=== PATIENT | male | born 1935 | race Caucasian/White ===

== ENCOUNTER → 2019-01-18 | Outpatient (CLI) | payer MEDICARE ==
[~2019-01-18] MED LIST: ALL10TAB28 PO; ASPI1TAB15 PO; CLOTR1CR TOP; CO Q PO; CO Q200C10 PO; CYAN100049 PO; DONE10TA90 PO; FLON1SPR NARES; MELA5CAP2 PO; MELO15TA28 PO; METO1TAB32 PO; METO1TAB87 PO; NAME28CA PO; OMEP40CA2 PO; PANT40TA3 PO; PLAV1TAB2 PO; QUET1TAB7 PO; SIMV20TA2 PO; TRIPOIN5 TOP; VITA500T88 PO; VITMTA PO; ZINC1TAB2 PO
--- NOTE | 2019-01-18 18:04 | REP ---
Chest x-ray: Two views. History: Upper respiratory symptoms. Comparison study: May 14, 2016. Findings: The patient is status post prior median sternotomy. Right hemidiaphragm is elevated as before. No infiltrate is seen. Pleural angles are sharp. Heart is not enlarged. The thoracic aorta is tortuous. Impression: Prior sternotomy. Chronic mild elevation right hemidiaphragm. No infiltrate seen. Electronically Signed by Ian Nye MD 01/18/2019 05:56 P
== END ==
LOC: M LRY 17:36
PROVIDERS: ATTEND Nurse Practitioner Family
DX: R06.2 Wheezing (principal)
CPT/HCPCS: 71046; G0463

== ENCOUNTER 2019-01-31 14:40 | Inpatient (IN) | payer MEDICARE ==
[~2019-01-31] VITALS: Ht 172.7 cm; Wt 93.5 kg
[~2019-01-31 14:40] MED LIST changes: -ALL10TAB29 PO; -CLOTR1CR TOP; -CO Q PO; -DONE10TA90 PO; -FLON1SPR NARES; -MELA5CAP2 PO; -METO1TAB32 PO; -NAME28CA PO; +OMEP40CA2 PO; -OMEP40CA97 PO; -PANT40TA3 PO; -PLAV1TAB2 PO; -QUET1TAB7 PO; +SIMV20TA2 PO; -SIMV20TA22 PO; -TRIPOIN5 TOP; -ZINC1TAB2 PO
[2019-01-31] MEDS ORDERED: PLAV1TAB2 PO (14:51)
[2019-01-31 17:09] LABS: BASO % 0.6 % (0.0-1.0); EOS # 0.4 10^3/uL (0.0-0.50); EOS % 7.6 % (0.0-3.0); HEMATOCRIT 44.7 % (42.0-52.0); HEMOGLOBIN 15.5 g/dl (13.5-17.5); LYMPH # 1.6 10^3/uL (1.5-4.5); LYMPH % 28.9 % (24.0-44.0); MEAN CORPUSCULAR HEMOGLOBIN 30.7 pg (27.0-33.0); MEAN CORPUSCULAR HGB CONC 34.7 g/dl (32.0-36.5); MEAN CORPUSCULAR VOLUME 88.5 fl (80.0-96.0); MONO # 0.6 10^3/uL (0.0-0.8); MONO % 10.3 % (0.0-5.0); NEUTROPHILS # 2.8 10^3/uL (1.8-7.7); NEUTROPHILS % 52.4 % (36.0-66.0); RED BLOOD COUNT 5.05 10^6/uL (4.30-6.10); WHITE BLOOD COUNT 5.4 10^3/uL (4.0-10.0)
[2019-01-31 17:13] LABS: PLATELET COUNT, AUTOMATED 95 10^3/uL (150-450)
[2019-01-31 17:22] LABS: INR 1.02; PROTHROMBIN TIME 13.1 SECONDS (11.8-14.0)
[2019-01-31 17:23] LABS: PARTIAL THROMBOPLASTIN TIME 29.1 SECONDS (25.0-38.4)
[2019-01-31 17:47] LABS: ALBUMIN 3.5 GM/DL (3.2-5.2); ALT/SGPT 259 U/L (12-78); BILIRUBIN,DIRECT 4.5 MG/DL (0.0-0.2); BILIRUBIN,TOTAL 7.8 MG/DL (0.2-1.0); BLOOD UREA NITROGEN 14 MG/DL (7-18); CALCIUM LEVEL 8.6 MG/DL (8.8-10.2); CARBON DIOXIDE LEVEL 27 MEQ/L (21-32); CHLORIDE LEVEL 106 MEQ/L (98-107); CREATININE FOR GFR 1.27 MG/DL (0.70-1.30); GLOMERULAR FILTRATION RATE 57.8 (>35); GLUCOSE, FASTING 108 MG/DL (70-100); LIPASE 380 U/L (73-393); POTASSIUM SERUM 5.7 MEQ/L (3.5-5.1); SODIUM LEVEL 137 MEQ/L (136-145); TOTAL PROTEIN 7.3 GM/DL (6.4-8.2)
[2019-01-31] MEDS ORDERED: ISOVUE-370 76% 100ML VIAL (Q9967) As Ordered ONE (17:58)
--- NOTE | 2019-01-31 18:55 | REPVR ---
EXAM: CT Abdomen and Pelvis With Contrast EXAM DATE/TIME: 01/31/2019 6:13 PM CLINICAL HISTORY: 83 years old, male; Abnormal findings; Abnormal lab test; Elevated liver enzymes; Additional info: Jaundice / elevated liver enzymes, painless jaundice TECHNIQUE: Imaging protocol: Axial computed tomography images of the abdomen and pelvis with intravenous contrast. Coronal and sagittal reformatted images were created and reviewed. Radiation optimization: All CT scans at this facility use at least one of these dose optimization techniques: automated exposure control; mA and/or kV adjustment per patient size (includes targeted exams where dose is matched to clinical indication); or iterative reconstruction. Contrast material: ISOVUE 370; Contrast volume: 100 ml; Contrast route: IV; COMPARISON: No relevant prior studies available. FINDINGS: Lungs: No suspicious mass or airspace process in the visualized lung bases. Liver: Liver appears normal with no focal abnormality. Gallbladder and bile ducts: Gallbladder is surgically absent. No biliary ductal dilatation. Pancreas: Pancreas appears normal. No focal mass or peripancreatic inflammation. Spleen: Spleen appears homogeneous without focal mass. Adrenals: Adrenal glands are normal in appearance. Kidneys and ureters: Kidneys appear normal, with no stone, solid mass or hydronephrosis. Stomach and bowel: No evidence of small bowel obstruction. Sparse colonic diverticula are present without evidence of inflammation. Appendix: No evidence of acute appendicitis. Intraperitoneal space: No pneumoperitoneum. No abnormal pelvic mass. Vasculature: Atherosclerotic change present in the aorta, without aneurysm. Main portal and splenic veins enhance normally. Lymph nodes: No enlarged lymph nodes. No abnormal pelvic sidewall lymph nodes. Bladder: Bladder appears normal. Reproductive: Prostate gland is diffusely enlarged. Bones/joints: Degenerative changes are seen in the lumbar spine with disc height loss, endplate osteophytes and hypertrophic facet arthropathy. Soft tissues: Unremarkable. IMPRESSION: No evidence of biliary dilatation or hepatic dysfunction. No explanation for elevated labs. Electronically signed by: Trey Pritchard On 01/31/2019 18:55:10 PM
[2019-01-31] MEDS ORDERED: ALL10TAB28 PO (19:36)
[2019-01-31] MEDS ORDERED: MELA5CAP2 PO (19:36)
[2019-01-31] MEDS ORDERED: QUET1TAB7 PO (19:36)
[2019-01-31] MEDS ORDERED: NAME28CA PO (19:36)
[2019-01-31] MEDS ORDERED: CO Q PO (19:36)
[2019-01-31] MEDS ORDERED: PANT40TA3 PO (19:36)
[2019-01-31] MEDS ORDERED: DONE10TA90 PO (19:36)
[2019-01-31] MEDS ORDERED: FLON1SPR NARES (19:36)
[2019-01-31] MEDS ORDERED: ZINC1TAB2 PO (19:36)
[2019-01-31] MEDS ORDERED: METO1TAB32 PO (19:36)
[2019-01-31] MEDS ORDERED: FLUTICASONE PROP 0.05% NASAL SPRAY 16 GM (FLONASE) NARES PRN (20:45)
[2019-01-31] MEDS ORDERED: PANTOPRAZOLE 40MG TAB (PROTONIX) PO PRN (20:45)
[2019-01-31] MEDS ORDERED: MOM 30ML SUSPENSION UDC PO PRN (20:45)
[2019-01-31] MEDS: NEOSPORIN TOP OINT 15GM TOP SCH (21:00)
--- NOTE | 2019-01-31 21:01 | HPEPDOC ---
General Date of Admission Date of Service: Jan 31, 2019 Primary Care Physician: A Attending Physician: LARON ROWAN MD Chief Complaint The patient is a 83-year-old male admitted with a reason for visit of Abnormal Labs. Source: Patient, Family Exam Limitations: No limitations Timing/Duration: Unsure Severity: Mild Associated Symptoms: Rash History of Present Illness 83 years old white male had some lab work done with his physician and was called in and told to come to ER as his liver functions are high and his urine has been dark. Patient offers no complaints. His only complaint is redness around his glans penis since last 1 or 2 days. . No chest shortness of breath, no syncope, no nausea, vomiting, diarrhea Home Medications Scheduled Ascorbic Acid (Vitamin C) 500 Mg Tab, 500 MG PO DAILY, (Reported) Aspirin (Aspirin EC) 81 Mg Tab, 81 MG PO QHS, (Reported) Cetirizine HCl (Cetirizine HCl) 10 Mg Tablet, 10 MG PO DAILY, (Reported) Clopidogrel Bisulfate (Plavix) 75 Mg Tablet, 75 MG PO DAILY, (Reported) Donepezil HCl (Donepezil HCl) 10 Mg Tablet, 10 MG PO QHS, (Reported) Melatonin (Melatonin) 5 Mg Capsule, 5 MG PO QHS, (Reported) Memantine HCl (Namenda Xr) 28 Mg Cap.spr.24, 28 MG PO DAILY, (Reported) Metoprolol Succinate (Metoprolol Succinate) 25 Mg Tab.er.24h, 25 MG PO DAILY, (Reported) Multivitamins (Thera M Plus Tablet) 1 Tab Tab, 1 TAB PO DAILY, (Reported) Quetiapine Fumarate (Quetiapine Fumarate) 25 Mg Tablet, 25 MG PO QHS, (Reported) Simvastatin (Simvastatin) 20 Mg Tab, 20 MG PO QHS, (Reported) Ubidecarenone (Co Q-10) 75 Mg Capsule, 75 MG PO DAILY, (Reported) Zinc (Zinc) 50 Mg Tablet, 50 MG PO QHS, (Reported) Scheduled PRN Fluticasone Propionate (Flonase Allergy Relief) 9.9 Ml [place].susp, 2 SPRAY NARES DAILY PRN for CONGESTION, (Reported) Pantoprazole Sodium (Pantoprazole Sodium) 40 Mg Tablet.dr, 40 MG PO DAILY PRN for ACID REFLUX, (Reported) Allergies Coded Allergies: latex (Verified Allergy, Intermediate, rash, 01/31/19) rofecoxib (Verified Allergy, Intermediate, rash, 01/31/19) Past Medical History Medical History CABG, colonoscopy, back surgery, laminectomy L4-L5, obstructive sleep apnea Surgical History As above Social History * Smoker: former Smoker, quit greater than 1 year Alcohol: Denies Drugs: denies A-FIB/CHADSVASC A-FIB History Current/History of A-Fib/PAF?: No Review of Systems Constitutional: Denies: Chills, Fever, Malaise, Night Sweats, Weakness, Fatigue, Weight Loss, Lethargy, Other Eyes: Reports: Other (, yellowish, conjunctiva); Denies: Pain, Vision change, Conjunctivae inflammation, Eyelid inflammation, Redness ENT: Denies: Head Aches, Ear Pain, Dysphagia, Sinus Congestion, Post Nasal Drip, Sore Throat, Epistaxis, Other Symptoms Skin: Denies: Rash, Lesions, Jaundice, Bruising, Itching, Dry, Breakdown, Nail Changes, Other Pulmonary: Denies: Dyspnea, Cough, Pleuritic Chest Pain, Other Symptoms Cardiovascular: Denies: Chest Pain, Palpitations, Orthopnea, Paroxysmal Noc. Dyspnea, Edema, Lt Headedness, Other Symptoms Gastrointestinal: Denies: Nausea, Vomiting, Abdominal Pain, Diarrhea, Constipation, Melena, Hematochezia, Other Symptoms Genitourinary: Reports: Other Symptoms (, redness around trans-penis and surrounding area) Hematologic: Denies: Bruising, Bleeding Excessively, Petecchia, Purpura, Enlarged Lymph Nodes, Other Hematologic Endocrine: Denies: Polydipsia, Polyphagia, Polyuria, Heat Intolerance, Cold Intolerance, Other Endocrine Sx Musculoskeletal: Denies: Neck Pain, Back Pain, Shoulder Pain, Arm Pain, Hand Pain, Leg Pain, Foot Pain, Joint Pain, Muscle Pain, Spasms, Other Symptoms Neurological: Denies: Weakness, Numbness, Incoordination, Change in speech, Confusion, Seizures, Other Symptoms Psych: Denies: Mood Normal, Anxiety, Depression, Memory Issues, Thoughts of Self Harm, Anger, Thoughts of Harming Other, Other Psych Physical Examination General Exam: Positive: Alert, No Acute Distress Eye Exam: Positive: PERRLA, Sclera icteric ENT Exam: Positive: Atraumatic Neck Exam: Positive: Supple Chest Exam: Positive: Clear to auscultation Heart Exam: Positive: Rate Normal, Normal S1, Normal S2 Abdomen Exam: Positive: Normal bowel sounds, Soft Extremity Exam: Positive: Normal pulses Skin Exam: Positive: Nl turgor and temperature Neuro Exam: Positive: Normal Gait, Strength at 5/5 X4 ext, Sensation Intact Psych Exam: Positive: Mental status NL, Mood NL Vital Signs Vital Signs Date Time Temp Pulse Resp B/P (MAP) Pulse Ox O2 Delivery O2 Flow Rate FiO2 01/31/19 19:37 97.7 56 155/72 (99) 92 01/31/19 17:06 18 Room Air Laboratory Data Labs 24H Laboratory Tests 2 01/31/19 16:55: Immature Granulocyte % (Auto) 0.2, White Blood Count 5.4, Red Blood Count 5.05, Hemoglobin 15.5, Hematocrit 44.7, Mean Corpuscular Volume 88.5, Mean Corpuscular Hemoglobin 30.7, Mean Corpuscular Hemoglobin Concent 34.7, Red Cell Distribution Width 15.0H, Platelet Count 95L, Neutrophils (%) (Auto) 52.4, Lymphocytes (%) (Auto) 28.9, Monocytes (%) (Auto) 10.3H, Eosinophils (%) (Auto) 7.6H, Basophils (%) (Auto) 0.6, Neutrophils # (Auto) 2.8, Lymphocytes # (Auto) 1.6, Monocytes # (Auto) 0.6, Eosinophils # (Auto) 0.4, Basophils # (Auto) 0.0, Nucleated Red Blood Cells % (auto) 0.0, Prothrombin Time 13.1, Prothromb Time International Ratio 1.02, Activated Partial Thromboplast Time 29.1, Anion Gap 4L, Glomerular Filtration Rate 57.8, Lactic Acid Level 1.1, Calcium Level 8.6L, Aspartate Amino Transf (AST/SGOT) 256H, Alanine Aminotransferase (ALT/SGPT) 259H, Alkaline Phosphatase 371H, Total Bilirubin 7.8H, Direct Bilirubin 4.5H, Total Protein 7.3, Albumin 3.5, Albumin/Globulin Ratio 0.92L, Lipase 380 01/31/19 17:54: Urine Color JUNIOR, Urine Appearance CLEAR, Urine pH 6.0, Urine Specific [place] 1.009, Urine Protein NEGATIVE, Urine Glucose (UA) NEGATIVE, Urine Ketones NEGATIVE, Urine Blood NEGATIVE, Urine Nitrite NEGATIVE, Urine Bilirubin 1+H, Urine Urobilinogen 4.0H, Urine Leukocyte Esterase NEGATIVE, Urine WBC (Auto) 1, Urine RBC (Auto) 2, Urine Hyaline Casts (Auto) 0, Urine Bacteria (Auto) NEGATIVE, Urine Squamous Epithelial Cells 0, Urine Sperm (Auto) CBC/BMP Laboratory Tests 01/31/19 16:55 Red Blood Count 5.05, Mean Corpuscular Volume 88.5, Mean Corpuscular Hemoglobin 30.7, Mean Corpuscular Hemoglobin Concent 34.7, Red Cell Distribution Width 15.0 H, Neutrophils (%) (Auto) 52.4, Lymphocytes (%) (Auto) 28.9, Monocytes (%) (Auto) 10.3 H, Eosinophils (%) (Auto) 7.6 H, Basophils (%) (Auto) 0.6, Neutrophils # (Auto) 2.8, Lymphocytes # (Auto) 1.6, Monocytes # (Auto) 0.6, Eosinophils # (Auto) 0.4, Basophils # (Auto) 0.0 Microbiology Microbiology 01/31/19 Blood Culture, Received Pending 01/31/19 Blood Culture, Received Pending Problems (1) Jaundice Status: Acute Problem Text: 83 years old white male presented with painless jaundice, patient's CT abdomen and pelvis does not show any mass or obstruction, he does have elevated LFTs and bilirubin, hepatitis profile is still pending Admit to medical floor IV fluids normal saline 80 mL per hour Follow hepatitis A, B, and C profile Repeat LFTs in a.m. Supportive care Due to prophylaxis with SCDs Regular diet Out of bed as tolerated (2) Superficial skin infection Problem Text: Superficial infection of the glans penis and surrounding area, Vesical seen per se, but some rest areas noted at the prepuce Will order triple antibiotics 3 times a day And will also ordered herpes titers Plan / VTE VTE Prophylaxis Ordered?: Yes LARON ROWAN MD Jan 31, 2019 21:01
[2019-01-31] MEDS: ASPIRIN 81 MG ENTERIC TAB PO SCH (22:00)
[2019-01-31] MEDS: DOCUSATE SODIUM 100 MG CAP PO SCH (22:00)
[2019-01-31] MEDS: NS 1,000 ML IV SCH (22:01)
[2019-01-31] MEDS: QUEtiapine FUMARATE 25 MG TAB PO SCH (22:01)
[2019-01-31] MEDS: SIMVASTATIN 20 MG TAB PO SCH (22:01)
[2019-02-01 00:10] VITALS: BP 162/76
[2019-02-01] MEDS: NEOSPORIN TOP OINT 15GM TOP SCH ×4 (01:41→21:53)
[2019-02-01 06:00] VITALS: BP 135/61
[2019-02-01] MEDS: NS 1,000 ML IV SCH ×2 (06:13→16:14)
[2019-02-01 06:20] LABS: HEMATOCRIT 43.2 % (42.0-52.0); HEMOGLOBIN 14.6 g/dl (13.5-17.5); MEAN CORPUSCULAR HGB CONC 33.8 g/dl (32.0-36.5); MEAN CORPUSCULAR VOLUME 88.7 fl (80.0-96.0); RED BLOOD COUNT 4.87 10^6/uL (4.30-6.10); WHITE BLOOD COUNT 5.6 10^3/uL (4.0-10.0)
[2019-02-01 06:22] LABS: PLATELET COUNT, AUTOMATED 92 10^3/uL (150-450)
[2019-02-01 06:37] LABS: ALBUMIN 3.1 GM/DL (3.2-5.2); ALT/SGPT 220 U/L (12-78); BILIRUBIN,TOTAL 7.1 MG/DL (0.2-1.0); BLOOD UREA NITROGEN 15 MG/DL (7-18); CALCIUM LEVEL 8.3 MG/DL (8.8-10.2); CARBON DIOXIDE LEVEL 26 MEQ/L (21-32); CHLORIDE LEVEL 108 MEQ/L (98-107); CREATININE FOR GFR 1.12 MG/DL (0.70-1.30); GLOMERULAR FILTRATION RATE > 60.0 (>35); GLUCOSE, FASTING 99 MG/DL (70-100); MAGNESIUM LEVEL 2.3 MG/DL (1.8-2.4); POTASSIUM SERUM 3.7 MEQ/L (3.5-5.1); SODIUM LEVEL 139 MEQ/L (136-145); TOTAL PROTEIN 6.1 GM/DL (6.4-8.2)
[2019-02-01 08:39] LABS: ETHYL ALCOHOL (ETHANOL) < 0.003 % (0.000-0.010); LDH LACTATE DEHYDROGENASE 223 U/L (87-241)
--- NOTE | 2019-02-01 08:43 | IPNPDOC ---
Subjective Date Seen The patient was seen on 02/01/19. Subjective Chief Complaint/HPI Avi was seen and examined this afternoon while lying in bed. Majority of history came from Avi's , due to his history of dementia. He is complaining of penile redness and burning with urination that has been going on for the past couple days. He has been applying triple antibiotic ointment to the affected area. He also complains of increased bowel urgency and difficulty at times getting to the bathroom in time. He was able to tolerate a full breakfast without any issues. He states that he stopped drinking alcohol and hasn't had alcohol in over a year. Patient has no history of IV drug use. Was a previous smoker but quit over 50 years ago. Patient's son of liver related issues/year secondary to extensive alcohol abuse. General: Denies: Chills, Night Sweats Constitutional: Denies: Fever ENT: Denies: Head Aches Pulmonary: Denies: Dyspnea, Cough Cardiovascular: Denies: Chest Pain, Palpitations Gastrointestinal: Reports: Other Symptoms (. Occasional bowel incontinence); Denies: Nausea, Vomiting, Abdominal Pain Genitourinary: Reports: Dysuria (, burning with urination), Other Symptoms (Recent dark-colored appearing urine) Musculoskeletal: Denies: Joint Pain, Muscle Pain Neurological: Denies: Weakness, Numbness Objective Physical Examination General Exam: Positive: Alert, Cooperative, No Acute Distress Eye Exam: Positive: PERRLA, Sclera icteric ENT Exam: Positive: Atraumatic Neck Exam: Positive: Supple; Negative: thyromegaly Chest Exam: Positive: Clear to auscultation; Negative: Rhonchi, Wheezing Heart Exam: Positive: Rate Normal, Normal S1, Normal S2 Abdomen Exam: Positive: Normal bowel sounds, Soft, Other (swelling just inferior to the 12th rib on the flank bilaterally. Skin is more tautness area., Nonpainful to palpation, but change and percussion frequency on exam. Negative Leyva sign); Negative: Tenderness Male Exam: Positive: Erythema (, erythema of the glans penis with mild adhesion to 4 skin and white, yellow-appearing substance at the base); Negative: Tenderness, Discharge Extremity Exam: Positive: Normal pulses (, 2+ radial and posterior tibial bilaterally) Skin Exam: Positive: Nl turgor and temperature, Other skin issue (, yellowing of skin diffusely, most pronounced on face, forearms, hands and abdomen) Neuro Exam: Positive: Normal Gait, Strength at 5/5 X4 ext, Sensation Intact Psych Exam: Positive: Mood NL, Other (. Patient was slow to answer some questions, often looking over to his , persistence and at times had trouble finding thoughts and/or words); Negative: Oriented x 3 (oriented to person and place only) Assessment /Plan Assessment 1. Jaundice with conjugated and unconjugated hyperbilirubinemia -Icteric sclera bilaterally, as well as diffuse yellowing of the skin. Patient also has areas of swelling just inferior to the 12th rib along the flank bilaterally. -Elevated transaminases on labs, which decreased on repeat measurement today. Continue to follow CMP -Abdomen and pelvis CT did not show any biliary distention or hepatic d ysfunction and there is no explanation for patient's elevated labs on imaging. As a result, patient underwent MRCP today -Patient states he does not have previous alcohol abuse and quit drinking altog ether over a year ago -Patient denies history of IV drug use -Hepatitis A, B and C profiles ordered -Important to rule out other causes: Primary biliary cirrhosis, viral hepatitis, CORCORAN, primary sclerosing cholangitis 2. Erythema of glans penis -Patient complains of associated burning on urination -Clotrimazole 1% topical cream ordered to be applied to affected area. In addition to current triple antibiotic cream. Patient should follow up with urology as an outpatient if symptoms do not improve -herpes titer ordered 3. History of CABG 4 2005 with LAD stent placement 2016 -Continue to monitor patient's blood pressure -Continue with home metoprolol 4. HLD -Continue patient's home simvastatin 5. History of dementia -Continue with patient's Seroquel and ramelteon 6. DVT prophylaxis -Patient on aspirin, Plavix -Patient also has TEDs and SCDs Plan/VTE VTE Prophylaxis Ordered?: Yes VS, I&O, 24H, Fishbone Vital Signs/I&O Vital Signs Date Time Temp Pulse Resp B/P (MAP) Pulse Ox O2 Delivery O2 Flow Rate FiO2 02/01/19 06:00 97.2 60 20 135/61 (85) 96 01/31/19 17:06 Room Air I&O- Last 24 Hours up to 6 AM 02/01/19 06:00 Intake Total 900 ml Output Total 0 ml Balance 900 ml Laboratory Data 24H LABS Laboratory Tests 2 01/31/19 16:55: Immature Granulocyte % (Auto) 0.2, White Blood Count 5.4, Red Blood Count 5.05, Hemoglobin 15.5, Hematocrit 44.7, Mean Corpuscular Volume 88.5, Mean Corpuscular Hemoglobin 30.7, Mean Corpuscular Hemoglobin Concent 34.7, Red Cell Distribution Width 15.0H, Platelet Count 95L, Neutrophils (%) (Auto) 52.4, Lymphocytes (%) (Auto) 28.9, Monocytes (%) (Auto) 10.3H, Eosinophils (%) (Auto) 7.6H, Basophils (%) (Auto) 0.6, Neutrophils # (Auto) 2.8, Lymphocytes # (Auto) 1.6, Monocytes # (Auto) 0.6, Eosinophils # (Auto) 0.4, Basophils # (Auto) 0.0, Nucleated Red Blood Cells % (auto) 0.0, Prothrombin Time 13.1, Prothromb Time International Ratio 1.02, Activated Partial Thromboplast Time 29.1, Anion Gap 4L, Glomerular Filtration Rate 57.8, Lactic Acid Level 1.1, Calcium Level 8.6L, Aspartate Amino Transf (AST/SGOT) 256H, Alanine Aminotransferase (ALT/SGPT) 259H, Alkaline Phosphatase 371H, Total Bilirubin 7.8H, Direct Bilirubin 4.5H, Total Protein 7.3, Albumin 3.5, Albumin/Globulin Ratio 0.92L, Lipase 380 01/31/19 17:54: Urine Color JUNIOR, Urine Appearance CLEAR, Urine pH 6.0, Urine Specific [place] 1.009, Urine Protein NEGATIVE, Urine Glucose (UA) NEGATIVE, Urine Ketones NEGATIVE, Urine Blood NEGATIVE, Urine Nitrite NEGATIVE, Urine Bilirubin 1+H, Urine Urobilinogen 4.0H, Urine Leukocyte Esterase NEGATIVE, Urine WBC (Auto) 1, Urine RBC (Auto) 2, Urine Hyaline Casts (Auto) 0, Urine Bacteria (Auto) NEGATIVE, Urine Squamous Epithelial Cells 0, Urine Sperm (Auto) 02/01/19 05:37: Nucleated Red Blood Cells % (auto) 0.0, Anion Gap 5L, Glomerular Filtration Rate > 60.0, Calcium Level 8.3L, Aspartate Amino Transf (AST/SGOT) 195H, Alanine Aminotransferase (ALT/SGPT) 220H, Alkaline Phosphatase 319H, Total Bilirubin 7.1H, Total Protein 6.1L, Albumin 3.1L, Albumin/Globulin Ratio 1.03, Blood Urea Nitrogen 15, Creatinine 1.12, Sodium Level 139, Potassium Level 3.7#, Chloride Level 108H, Carbon Dioxide Level 26, Lactate Dehydrogenase 223, Magnesium Level 2.3, Ethyl Alcohol Level < 0.003 CBC/BMP Laboratory Tests 01/31/19 16:55 Red Blood Count 5.05, Mean Corpuscular Volume 88.5, Mean Corpuscular Hemoglobin 30.7, Mean Corpuscular Hemoglobin Concent 34.7, Red Cell Distribution Width 15.0 H, Neutrophils (%) (Auto) 52.4, Lymphocytes (%) (Auto) 28.9, Monocytes (%) (Auto) 10.3 H, Eosinophils (%) (Auto) 7.6 H, Basophils (%) (Auto) 0.6, Neutrophils # (Auto) 2.8, Lymphocytes # (Auto) 1.6, Monocytes # (Auto) 0.6, Eosinophils # (Auto) 0.4, Basophils # (Auto) 0.0 02/01/19 05:37 Red Blood Count 4.87, Mean Corpuscular Volume 88.7, Mean Corpuscular Hemoglobin 30.0, Mean Corpuscular Hemoglobin Concent 33.8, Red Cell Distribution Width 15.2 H, Calcium Level 8.3 L, Aspartate Amino Transf (AST/SGOT) 195 H, Alanine Aminotransferase (ALT/SGPT) 220 H, Lactate Dehydrogenase 223, Alkaline Phosphatase 319 H, Total Bilirubin 7.1 H, Total Protein 6.1 L, Albumin 3.1 L Microbiology Microbiology 01/31/19 Blood Culture, Received Pending 01/31/19 Blood Culture, Received Pending Attending Note Attending Note I have personally seen and examined the patient this am. I agree with the finding and the plan of care as documented above in the resident's note. Patient has h/o dementia so much of the history is got from the . The tells me that she has noticed his yellow discoloration or the eyes several times before Jaundice conjugated and unconjugated hyperbilirubinemia: No obstruction noted in CT however to get more information we will get an MRCP. Other causes to rule out are drugs/ toxins, Primary biliary cirrhosis, primary sclerosing cholangitis, viral hepatitis , CORCORAN. No history of alcohol abuse Penile erythema , ulcer will try antifungal ointment and tripple antibiotic ointment . If does not improve will refer to urology as out patient. FRANTZ DEVINE PGY-1 Feb 01, 2019 08:43 CAMILLE SNOW MD Feb 01, 2019 16:52
[2019-02-01 09:00] VITALS: BP 133/65
[2019-02-01] MEDS: CLOPIDOGREL 75 MG TAB PO SCH (09:12)
[2019-02-01] MEDS: MULTIVITAMINS/MINERALS THERAP 1 TAB PO SCH (09:13)
[2019-02-01] MEDS: DOCUSATE SODIUM 100 MG CAP PO SCH ×2 (09:13→21:52)
[2019-02-01] MEDS: CETIRIZINE (ZyrTEC) 10 MG TAB PO SCH (09:13)
[2019-02-01] MEDS: METOPROLOL SUCC *XL* 25MG TAB (TopROL *XL*) PO SCH (09:18)
[2019-02-01 14:00] VITALS: BP 138/70
--- NOTE | 2019-02-01 19:20 | REPVR ---
EXAM: MR Abdomen Without Contrast EXAM DATE/TIME: 02/01/2019 6:30 PM CLINICAL HISTORY: 83 years old, male; Abnormal findings; Abnormal lab test; Elevated liver enzymes; Other: Jaundice; Prior surgery; Surgery date: 6+ months; Surgery type: Gb removal; Additional info: Jaundice, transaminitis TECHNIQUE: Imaging protocol: MR (MRCP) of the abdomen without contrast. COMPARISON: CT ABD/PEL W/IV CONTRAST ONLY 01/31/2019 6:04 PM FINDINGS: Liver: Status subcentimeter hepatic cysts in the right and left lobes of the liver. Hepatic steatosis. Gallbladder and bile ducts: Status post cholecystectomy. No dilatation of the intra-or extrahepatic biliary tree. Pancreas: Unremarkable. No ductal dilation. Spleen: Borderline splenomegaly. Adrenals: Unremarkable. No mass. Kidneys and ureters: Unremarkable. No solid mass. No hydronephrosis. Stomach and bowel: Limited evaluation but unremarkable. Intraperitoneal space: No fluid collection. Arteries: No abdominal aortic aneurysm. Bones/joints: Unremarkable for age demonstrating degenerative spondylosis. Soft tissues: Unremarkable. IMPRESSION: 1. Borderline splenomegaly. 2. Tiny hepatic cysts. Hepatic steatosis. 3. Status post cholecystectomy. No biliary dilatation. COMMENT: Consistent with the [employer]'s Incidental Findings Committee Report (J Am Derick Radiol 2010): Unless the patient's specific circumstances suggest otherwise, any liver lesion 0.5 cm or less, any cystic kidney lesion less than 1.0 cm, and/or any adrenal lesion 1.0 cm or less not otherwise characterized in this report as possessing suspicious or indeterminate imaging features is/are highly likely to be benign and do not require follow-up imaging or biopsy. Electronically signed by: Avi Coats On 02/01/2019 19:20:25 PM
[2019-02-01] MEDS: ASPIRIN 81 MG ENTERIC TAB PO SCH (21:52)
[2019-02-01] MEDS: QUEtiapine FUMARATE 25 MG TAB PO SCH (21:52)
[2019-02-01] MEDS: RAMELTEON 8 MG TAB (ROZEREM) PO SCH (21:52)
[2019-02-01] MEDS: SIMVASTATIN 20 MG TAB PO SCH (21:52)
[2019-02-01] MEDS: CLOTRIMAZOLE 1% TOPICAL CREAM 30GM TOP SCH (21:53)
[2019-02-01 22:00] VITALS: BP 128/59
--- NOTE | 2019-02-02 00:12 | ECGEPIP ---
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
[2019-02-02] MEDS: NS 1,000 ML IV SCH ×3 (03:00→23:00)
[2019-02-02 06:00] VITALS: BP 129/68
[2019-02-02 06:11] LABS: HEMATOCRIT 40.6 % (42.0-52.0); HEMOGLOBIN 14.2 g/dl (13.5-17.5); MEAN CORPUSCULAR HEMOGLOBIN 30.7 pg (27.0-33.0); MEAN CORPUSCULAR VOLUME 87.9 fl (80.0-96.0); PLATELET COUNT, AUTOMATED 102 10^3/uL (150-450); RED BLOOD COUNT 4.62 10^6/uL (4.30-6.10); WHITE BLOOD COUNT 6.4 10^3/uL (4.0-10.0)
[2019-02-02 06:40] LABS: ALT/SGPT 216 U/L (12-78); BILIRUBIN,TOTAL 8.3 MG/DL (0.2-1.0); BLOOD UREA NITROGEN 14 MG/DL (7-18); CALCIUM LEVEL 8.3 MG/DL (8.8-10.2); CARBON DIOXIDE LEVEL 25 MEQ/L (21-32); CHLORIDE LEVEL 109 MEQ/L (98-107); CREATININE FOR GFR 1.17 MG/DL (0.70-1.30); GLOMERULAR FILTRATION RATE > 60.0 (>35); GLUCOSE, FASTING 94 MG/DL (70-100); POTASSIUM SERUM 4.2 MEQ/L (3.5-5.1); SODIUM LEVEL 139 MEQ/L (136-145); TOTAL PROTEIN 6.2 GM/DL (6.4-8.2)
[2019-02-02] MEDS: CLOPIDOGREL 75 MG TAB PO SCH (08:57)
[2019-02-02] MEDS: CETIRIZINE (ZyrTEC) 10 MG TAB PO SCH (08:57)
[2019-02-02] MEDS: MULTIVITAMINS/MINERALS THERAP 1 TAB PO SCH (08:57)
[2019-02-02] MEDS: DOCUSATE SODIUM 100 MG CAP PO SCH ×2 (08:57→20:19)
[2019-02-02 08:58] VITALS: BP 129/68
[2019-02-02] MEDS: METOPROLOL SUCC *XL* 25MG TAB (TopROL *XL*) PO SCH (08:58)
[2019-02-02] MEDS: NEOSPORIN TOP OINT 15GM TOP SCH ×3 (08:59→20:19)
[2019-02-02] MEDS: CLOTRIMAZOLE 1% TOPICAL CREAM 30GM TOP SCH ×2 (08:59→20:19)
[2019-02-02 10:09] LABS: HEPATITIS B SURFACE ANTIGEN NEGATIVE (NEGATIVE)
[2019-02-02 10:37] LABS: HEPATITIS B CORE ANTIBODY IGM NEGATIVE (NEGATIVE); HEPATITIS C VIRUS ABY INDEX 0.1 INDEX (<0.8)
[2019-02-02 10:39] LABS: HEPATITIS A ANTIBODY IGM NEGATIVE (NEGATIVE)
[2019-02-02 14:00] VITALS: BP 142/66
--- NOTE | 2019-02-02 17:29 | IPNPDOC ---
Subjective Date Seen The patient was seen on 02/02/19. Subjective Chief Complaint/HPI Avi was seen and examined this morning while lying in bed. He states he does not have any pain and tolerated yesterday's MRCP without any issues. He has been able to sleep, but continues to have painful urination. General: Denies: Chills, Night Sweats Constitutional: Denies: Fever ENT: Denies: Head Aches Pulmonary: Denies: Dyspnea, Cough Cardiovascular: Denies: Chest Pain, Palpitations Gastrointestinal: Reports: Other Symptoms (. Patient continues to have issues with bowel urgency ); Denies: Nausea, Vomiting, Abdominal Pain, Constipation Genitourinary: Reports: Dysuria (painful urination), Other Symptoms (erythematous glans penis) Musculoskeletal: Denies: Joint Pain, Muscle Pain Neurological: Denies: Weakness, Numbness Objective Physical Examination General Exam: Positive: Alert, Cooperative, No Acute Distress, Other (, pleasant gentleman) Eye Exam: Positive: PERRLA, Sclera icteric ENT Exam: Positive: Atraumatic Neck Exam: Positive: Supple; Negative: thyromegaly Chest Exam: Positive: Clear to auscultation; Negative: Rhonchi, Wheezing Heart Exam: Positive: Rate Normal, Normal S1, Normal S2 Abdomen Exam: Positive: Normal bowel sounds, Soft, Other (swelling just inferior to the 12th rib on the flank bilaterally; skin is more taut in these areas area. Nonpainful to palpation, but change and percussion frequency on exam. Negative Leyva sign); Negative: Tenderness Male Exam: Positive: Erythema (, erythema of the glans penis with mild adhesion to 4 skin and white, yellow-appearing substance at the base); Negative: Tenderness, Discharge Extremity Exam: Positive: Normal pulses (, 2+ radial and posterior tibial bilaterally); Negative: Edema (. No lower extremity edema present) Skin Exam: Positive: Nl turgor and temperature, Other skin issue (, yellowing of skin diffusely, most pronounced on face, forearms, hands and abdomen) Neuro Exam: Positive: Normal Gait, Strength at 5/5 X4 ext, Sensation Intact Psych Exam: Positive: Mood NL, Other (. Patient was slow to answer some questions, often looking over to his , persistence and at times had trouble finding thoughts and/or words); Negative: Oriented x 3 (oriented to person and place only) Assessment /Plan Assessment 1. Painless jaundice with conjugated and unconjugated hyperbilirubinemia -MRCP yesterday (02/01) showed borderline splenomegaly with tiny hepatic cysts and hepatic steatosis. There is no biliary dilatation. -GI was consulted and will evaluate the patient -Total and direct bilirubin as well as transaminases remain elevated. UA was positive for urine urobilinogen and urine bilirubin -Serology (HAV, HBV, HCV), antimitochondrial antibody, and herpes titer are still pending -Continue to monitor repeat CMPs -Patient denies any history of IV drug use 2. Balanitis -Glans penis appears less erythematous on inspection today, and adhesion between foreskin and glans penis is decreased. -Spoke with urology yesterday who advised applying topical antifungal to affected area. If patient's symptoms persist post hospital stay, he is encouraged to follow up at [facility] u[facility] as an outpatient -Patient continues to experience burning with urination, likely secondary to decreased circumference of penile urethra associated with glans penis inflammation -UA negative for white blood cells and leukocyte esterase. It showed presence of urobilinogen and bilirubin, likely causing patient's darkened-appearing urine -Herpes titer pending 3. 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 Hyperlipidemia -Continue home simvastatin -Patient on regular diet 5. History of dementia. Continue with Seroquel and ramelteon 6. DVT prophylaxis -On aspirin, Plavix, also has teds and sequentials I saw and evaluated the patient. I agree with the findings and plan of care as documented in the above note Plan/VTE VTE Prophylaxis Ordered?: Yes VS, I&O, 24H, Fishbone Vital Signs/I&O Vital Signs Date Time Temp Pulse Resp B/P (MAP) Pulse Ox O2 Delivery O2 Flow Rate FiO2 02/02/19 14:00 97.0 57 17 142/66 (91) 96 01/31/19 17:06 Room Air I&O- Last 24 Hours up to 6 AM 02/02/19 06:00 Intake Total 3250 ml Output Total 300 ml Balance 2950 ml Laboratory Data 24H LABS Laboratory Tests 2 02/02/19 05:18: Nucleated Red Blood Cells % (auto) 0.0, Anion Gap 5L, Glomerular Filtration Rate > 60.0, Blood Urea Nitrogen 14, Creatinine 1.17, Sodium Level 139, Potassium Level 4.2, Chloride Level 109H, Carbon Dioxide Level 25, Calcium Level 8.3L, Aspartate Amino Transf (AST/SGOT) 222H, Alanine Aminotransferase (ALT/SGPT) 216H, Alkaline Phosphatase 331H, Total Bilirubin 8.3H, Total Protein 6.2L, Albumin 3.0L, Albumin/Globulin Ratio 0.94L 02/02/19 09:57: CBC/BMP Laboratory Tests 02/02/19 05:18 Red Blood Count 4.62, Mean Corpuscular Volume 87.9, Mean Corpuscular Hemoglobin 30.7, Mean Corpuscular Hemoglobin Concent 35.0, Red Cell Distribution Width 15.5 H, Calcium Level 8.3 L, Aspartate Amino Transf (AST/SGOT) 222 H, Alanine Aminot ransferase (ALT/SGPT) 216 H, Alkaline Phosphatase 331 H, Total Bilirubin 8.3 H, Total Protein 6.2 L, Albumin 3.0 L Microbiology Microbiology 01/31/19 Blood Culture - Preliminary, Resulted No growth after 24 hours . All specim... 01/31/19 Blood Culture - Preliminary, Resulted No Growth after 48 hours. All Specime... FRANTZ DEVINE PGY-1 Feb 02, 2019 17:29 VINOD MOISE MD Feb 03, 2019 18:27
[2019-02-02] MEDS: RAMELTEON 8 MG TAB (ROZEREM) PO SCH (20:18)
[2019-02-02] MEDS: ASPIRIN 81 MG ENTERIC TAB PO SCH (20:19)
[2019-02-02] MEDS: QUEtiapine FUMARATE 25 MG TAB PO SCH (20:19)
[2019-02-02] MEDS: SIMVASTATIN 20 MG TAB PO SCH (20:19)
[2019-02-02 22:00] VITALS: BP 153/70
[2019-02-03 00:06] LABS: HSV IgM TYPES 1&2 <0.91 Ratio (0.00-0.90)
[2019-02-03] MEDS: NS 1,000 ML IV SCH ×2 (02:09→08:06)
[2019-02-03 06:00] VITALS: BP 145/73
[2019-02-03 06:24] LABS: HEMATOCRIT 38.4 % (42.0-52.0); HEMOGLOBIN 13.5 g/dl (13.5-17.5); MEAN CORPUSCULAR HEMOGLOBIN 30.1 pg (27.0-33.0); MEAN CORPUSCULAR HGB CONC 35.2 g/dl (32.0-36.5); MEAN CORPUSCULAR VOLUME 85.5 fl (80.0-96.0); PLATELET COUNT, AUTOMATED 104 10^3/uL (150-450); RED BLOOD COUNT 4.49 10^6/uL (4.30-6.10); WHITE BLOOD COUNT 6.4 10^3/uL (4.0-10.0)
[2019-02-03] MEDS: CETIRIZINE (ZyrTEC) 10 MG TAB PO SCH (08:19)
[2019-02-03] MEDS: METOPROLOL SUCC *XL* 25MG TAB (TopROL *XL*) PO SCH (08:19)
[2019-02-03] MEDS: MULTIVITAMINS/MINERALS THERAP 1 TAB PO SCH (08:19)
[2019-02-03] MEDS: DOCUSATE SODIUM 100 MG CAP PO SCH (08:19)
[2019-02-03] MEDS: CLOPIDOGREL 75 MG TAB PO SCH (08:19)
[2019-02-03] MEDS: NEOSPORIN TOP OINT 15GM TOP SCH (08:20)
[2019-02-03] MEDS: CLOTRIMAZOLE 1% TOPICAL CREAM 30GM TOP SCH (08:20)
[2019-02-03] MEDS ORDERED: CLOTR1CR TOP (10:23)
[2019-02-03] MEDS ORDERED: TRIPOIN5 TOP (10:23)
[2019-02-03 11:23] LABS: APPEARANCE, URINE CLEAR (CLEAR); BACTERIA, URINE AUTO NEGATIVE (NEGATIVE); BILIRUBIN, URINE AUTO NEGATIVE (NEGATIVE); BLOOD, URINE BLOOD NEGATIVE (NEGATIVE); COLOR, URINE YELLOW (YELLOW); GLUCOSE, URINE (UA) AUTO NEGATIVE (NEGATIVE); KETONE, URINE AUTO NEGATIVE (NEGATIVE); LEUKOCYTE ESTERASE, URINE AUTO NEGATIVE (NEGATIVE); NITRITE, URINE AUTO NEGATIVE (NEGATIVE); PROTEIN, URINE AUTO NEGATIVE (NEGATIVE); RBC, URINE AUTO 2 /HPF (0-3); SPECIFIC GRAVITY URINE AUTO 1.002 (1.002-1.035); SQUAMOUS EPITHELIAL CELL UR AU 0 /HPF (0-6); UROBILINOGEN, URINE AUTO 0.2 mg/dL (0.0-2.0); WBC, URINE AUTO 1 /HPF (0-3)
[2019-02-03 15:47] LABS: ALT/SGPT 208 U/L (12-78); BILIRUBIN,TOTAL 10.3 MG/DL (0.2-1.0); BLOOD UREA NITROGEN 11 MG/DL (7-18); CALCIUM LEVEL 8.3 MG/DL (8.8-10.2); CARBON DIOXIDE LEVEL 22 MEQ/L (21-32); CHLORIDE LEVEL 108 MEQ/L (98-107); CREATININE FOR GFR 1.03 MG/DL (0.70-1.30); GLOMERULAR FILTRATION RATE > 60.0 (>35); GLUCOSE, FASTING 87 MG/DL (70-100); POTASSIUM SERUM 4.1 MEQ/L (3.5-5.1); SODIUM LEVEL 138 MEQ/L (136-145); TOTAL PROTEIN 5.8 GM/DL (6.4-8.2)
--- NOTE | 2019-02-03 20:05 | DS.PDOC ---
Discharge Summary General Date of Admission Jan 31, 2019 Date of Discharge 02/03/2019 Attending Physician: VINOD MOISE MD Specialist/Consultants Involve: James Jennings Discharge Summary PROCEDURES PERFORMED DURING STAY: None ADMITTING DIAGNOSES: 1. Acute painless jaundice with elevated transaminases 2. Penile erythema DISCHARGE DIAGNOSES: 1. Acute painless jaundice conjugated and unconjugated hyperbilirubinemia with elevated transaminases. 2. Balanitis 3. Hyperlipidemia 4. History of dementia 5. History of CABG 4, (2005) with left anterior descending artery stent placed in 2016 COMPLICATIONS/CHIEF COMPLAINT: Jaundice. HISTORY OF PRESENT ILLNESS: Avi is an 83-year-old male with pertinent past medical history of dementia, CABG 4, (2005) with LAD stent, (2015), and hyperlipidemia who presented to the emergency department on 01/31 after having elevated transaminases with accompanying dark-colored urine on presentation earlier in . He noticed yellowing of his skin and eyes, particularly the upper trunk, beginning roughly a couple days ago prior to ED presentation on 01/31. His only complaints on admission were redness around his glans penis for the past 1-2 days with accompanying pain on urination and dark-colored urine. He denied recent travel, recent change in medication, recent exposure to sick contacts, IV drug use history, and states he is not consumed alcohol of any appreciable amount in over the year. Virtually all of substantive history was supplied by Avi's due to Avi's dementia. Initial measurements of total bilirubin, direct bilirubin, AST, ALP alkaline phosphatase were all elevated. HOSPITAL COURSE: Avi was admitted under the care of the hospitalist team for workup as to the cause of his acute painless jaundice and both conjugated and unconjugated hyperbilirubinemia. Abdomen pelvis CT showed no obstruction, so subsequent abdominal MRI without contrast was ordered. Abdominal MRI also did not show obstruction, but did have some small hepatic cysts and hepatic steatosis. Hospitalist team, in conjunction with gastroenterology (who was consulted on this case), began to workup the possible causes of patient's jaundice/hepatitis. Blood cultures, toxicology screen, hepatitis A, hepatitis B, hepatitis C screens, Johnna-Coles virus titer, cytomegalovirus titer, anti-mitochondrial antibodies, anti-nuclear antibodies (DB), and liver/kidney microsomal titers were all ordered. The goal was to try to rule in/ruled out viral hepatitis versus autoimmune hepatitis versus drug/toxin mediated hepatitis/abnormal liver functions, primary biliary cirrhosis, primary sclerosing cholangitis, and nonalcoholic steatohepatitis area. At time of discharge, DB screen and liver/kidney microsomal titers were still pending, but all other screens/titers/lab results were negative. Blood cultures were also negative and toxicology screen was clear, showing no elevated apple alcohol levels. GI was okay with discharge and will follow-up in the office with the patient in one week and assess if there is any decreased trend in patient's symptomatology/jaundice and still pending labs. Initial UA showed both bilirubin and urobilinogen present in the urine. Urobilinogen presence and urine was likely cause of patient's dark-colored urine. Throughout patient's admission, his trunk, upper extremity, facial and scleral jaundice persisted. Patient never complained during stay of feeling nauseated, vomiting, abdominal pain, abdominal fullness, fever, or chills. In addition, patient's balanitis was treated with topical antibacterial and anti-fungal creams which seemed to improve glans penis erythema over admission stay. Hospitalist team spoke to urology who advocated adding the antifungal to the initial intake bacterial topical cream. Urology stated that if patient's symptoms persisted, he should follow up to their office as an outpatient. DISCHARGE MEDICATIONS: Please see below. ALLERGIES: Please see below. PHYSICAL EXAMINATION ON DISCHARGE: VITAL SIGNS: Please see below. General Exam: Positive: Alert, Cooperative, No Acute Distress, Other (, pleasant gentleman) Eye Exam: Positive: PERRLA, Sclera icteric ENT Exam: Positive: Atraumatic Neck Exam: Positive: Supple; Negative: thyromegaly Chest Exam: Positive: Clear to auscultation; Negative: Rhonchi, Wheezing Heart Exam: Positive: Rate Normal, Normal S1, Normal S2 Abdomen Exam: Positive: Normal bowel sounds, Soft, Other (swelling just inferior to the 12th rib on the flank bilaterally; skin is more taut in these areas area. Nonpainful to palpation, but change and percussion frequency on exam. Negative Leyva sign); Negative: Tenderness Male Exam: Positive: Erythema (, erythema of the glans penis with mild adhesion to 4 skin and white, yellow-appearing substance at the base); Negative: Tenderness, Discharge Extremity Exam: Positive: Normal pulses (, 2+ radial and posterior tibial bilaterally); Negative: Edema (. No lower extremity edema present) Skin Exam: Positive: Nl turgor and temperature, Other skin issue (, yellowing of skin diffusely, most pronounced on face, forearms, hands and abdomen) Neuro Exam: Positive: Normal Gait, Strength at 5/5 X4 ext, Sensation Intact Psych Exam: Positive: Mood NL, Other (. Patient was slow to answer some quest ions, often looking over to his , persistence and at times had trouble finding thoughts and/or words); Negative: Oriented x 3 (oriented to person and place only) LABORATORY DATA: Please see below. IMAGING: Abdomen/pelvis CT, 01/31 showed no evidence of biliary dilatation or hepatic dysfunction. No expiration for elevated labs. Abdominal MRI without contrast (MRCP), 02/01 showed borderline splenomegaly, tiny hepatic cysts, and hepatic steatosis. Status post cholecystectomy. No biliary dilatation. PROGNOSIS: fair ACTIVITY: As tolerated DIET: As tolerated DISPOSITION: 01 Home, Self-Care. DISCHARGE INSTRUCTIONS & ITEMS TO FOLLOWUP ON OUTPATIENT: 1. Follow-up as outpatient with gastroenterology office in about one week. 2. Follow-up with primary care physician next 7-10 days 3. If symptoms that caused this admission are to worsen or reappear, or if patient experiences an acute medical emergency of any kind, patient is instructed to return to the emergency department. DISCHARGE CONDITION: Stable I saw and evaluated the patient. I agree with the findings and plan of care as documented in the documenters note. I spent 45 minutes coordinating this patient's discharge. Vital Signs/I&Os Vital Signs Date Time Temp Pulse Resp B/P (MAP) Pulse Ox O2 Delivery O2 Flow Rate FiO2 02/03/19 06:00 98.1 54 20 145/73 (97) 96 01/31/19 17:06 Room Air I&O- Last 24 Hours up to 6 AM 02/03/19 06:00 Intake Total 2820 ml Balance 2820 ml Laboratory Data Labs 24H Laboratory Tests 2 02/03/19 05:48: Nucleated Red Blood Cells % (auto) 0.0 02/03/19 07:25: Anion Gap 8, Glomerular Filtration Rate > 60.0, Blood Urea Nitrogen 11, Creatinine 1.03, Sodium Level 138, Potassium Level 4.1, Chloride Level 108H, Carbon Dioxide Level 22, Calcium Level 8.3L, Aspartate Amino Transf (AST/SGOT) 187H, Alanine Aminotransferase (ALT/SGPT) 208H, Alkaline Phosphatase 334H, Total Bilirubin 10.3H, Total Protein 5.8L, Albumin 3.0L, Albumin/Globulin Ratio 1.07 02/03/19 11:14: Urine Appearance CLEAR, Urine Color YELLOW, Urine pH 6.0, Urine Specific [place] 1.002, Urine Protein NEGATIVE, Urine Glucose (UA) NEGATIVE, Urine Ketones NEGATIVE, Urine Urobilinogen 0.2, Urine Bilirubin NEGATIVE, Urine Leukocyte Esterase NEGATIVE, Urine Blood NEGATIVE, Urine Nitrite NEGATIVE, Urine WBC (Auto) 1, Urine RBC (Auto) 2, Urine Hyaline Casts (Auto) 0, Urine Bacteria (Auto) NEGATIVE, Urine Squamous Epithelial Cells 0, Urine Sperm (Auto) CBC/BMP Laboratory Tests 02/03/19 05:48 Red Blood Count 4.49, Mean Corpuscular Volume 85.5, Mean Corpuscular Hemoglobin 30.1, Mean Corpuscular Hemoglobin Concent 35.2, Red Cell Distribution Width 15.9 H 02/03/19 07:25 Calcium Level 8.3 L, Aspartate Amino Transf (AST/SGOT) 187 H, Alanine Aminotransferase (ALT/SGPT) 208 H, Alkaline Phosphatase 334 H, Total Bilirubin 10.3 H, Total Protein 5.8 L, Albumin 3.0 L Microbiology Microbiology 01/31/19 Blood Culture - Preliminary, Resulted No Growth after 72 hours. All specime... 01/31/19 Blood Culture - Preliminary, Resulted No Growth after 72 hours. All specime... Discharge Medications Scheduled Ascorbic Acid (Vitamin C) 500 Mg Tab, 500 MG PO DAILY, (Reported) Aspirin (Aspirin EC) 81 Mg Tab, 81 MG PO QHS, (Reported) Cetirizine HCl (Cetirizine HCl) 10 Mg Tablet, 10 MG PO DAILY, (Reported) Clopidogrel Bisulfate (Plavix) 75 Mg Tablet, 75 MG PO DAILY, (Reported) Clotrimazole (Clotrimazole) 30 Gm Cream..g., 1 DOSE TOP BID apply to affected area on penis Donepezil HCl (Donepezil HCl) 10 Mg Tablet, 10 MG PO QHS, (Reported) Melatonin (Melatonin) 5 Mg Capsule, 5 MG PO QHS, (Reported) Memantine HCl (Namenda Xr) 28 Mg Cap.spr.24, 28 MG PO DAILY, (Reported) Metoprolol Succinate (Metoprolol Succinate) 25 Mg Tab.er.24h, 25 MG PO DAILY, (Reported) Multivitamins (Thera M Plus Tablet) 1 Tab Tab, 1 TAB PO DAILY, (Reported) Neomycin/Bacitracin/Polymyxinb (Triple Antibiotic Ointment) 28 Gm Oint...g., 0 DOSE TOP TID apply to glans penis Quetiapine Fumarate (Quetiapine Fumarate) 25 Mg Tablet, 25 MG PO QHS, (Reported) Simvastatin (Simvastatin) 20 Mg Tab, 20 MG PO QHS, (Reported) Ubidecarenone (Co Q-10) 75 Mg Capsule, 75 MG PO DAILY, (Reported) Zinc (Zinc) 50 Mg Tablet, 50 MG PO QHS, (Reported) Scheduled PRN Fluticasone Propionate (Flonase Allergy Relief) 9.9 Ml [place].susp, 2 SPRAY NARES DAILY PRN for CONGESTION, (Reported) Pantoprazole Sodium (Pantoprazole Sodium) 40 Mg Tablet.dr, 40 MG PO DAILY PRN for ACID REFLUX, (Reported) Allergies Coded Allergies: latex (Verified Allergy, Intermediate, rash, 01/31/19) rofecoxib (Verified Allergy, Intermediate, rash, 01/31/19) FRANTZ DEVINE PGY-1 Feb 03, 2019 20:05 VINOD MOISE MD Feb 15, 2019 16:59
[2019-02-04 00:08] LABS: ANTINUCLEAR ANTIBODIES DIRECT Negative (Negative); CYTOMEGALOVIRUS IgM ANTIBODY <30.0 AU/mL (0.0-29.9); EBV VIRAL CAPSID AG IgM <36.0 U/mL (0.0-35.9); LIVER-KIDNEY MICROSOMAL ABY <20.1 Units (0.0-20.0)
--- NOTE | 2019-02-04 15:16 | CR ---
DATE OF CONSULTATION: 02/03/2019 This is an 83-year-old white male who was admitted to [facility] ([facility]) on 01/31/2019 for a history of abnormal liver functions and change in color of his urine. The patient has no complaints of abdominal pain, change in bowel habits, weight loss, nausea, vomiting, fevers, night sweats or shaking chills. The patient was told to go to the emergency room (ER) after blood tests were found to have elevated liver functions. MEDICATIONS AT HOME: Include: - vitamin C - baby aspirin - cetirizine - Plavix 75 mg a day - donepezil 10 mg a day - melatonin - Namenda - metoprolol - multivitamin - quetiapine fumarate - simvastatin - CoQ10 - zinc ALLERGIES: LASIX and ROFECOXIB. PAST SURGICAL HISTORY: The patient has had previous colonoscopy, back surgery, laminectomy at L4-5, has obstructive sleep apnea and has had a coronary artery bypass graft (CABG) before. SOCIAL HISTORY: The patient quit smoking a year ago. Alcohol: None. Drugs: None. REVIEW OF SYSTEMS: Noncontributory. PHYSICAL EXAMINATION: GENERAL: He is a well-developed, well-nourished white male in no obvious acute distress. Appears stated age. Skin was slightly icteric. EYES: Sclera was icteric. CHEST: Clear to auscultation. CARDIOVASCULAR: Showed a regular rhythm. No murmurs or gallops. Normal physiological split, S1, S2. ABDOMEN: Soft, nontender. No masses, guarding, rebound, or hepatosplenomegaly. Bowel sounds positive. LABORATORY STUDIES: On admission shows a white count of 5400, hemoglobin and hematocrit was 15.5 and 44.7, platelets were down on admission and platelet count was 95,000. Hemoglobin and hematocrit on 02/03/2019 showed a white count of 6400, hemoglobin and hematocrit is 13.5 and 38.4, platelets were 104,000. Chemistry on admission showed a total bilirubin of 7.8, AST of 256, ALT of 259, alkaline phosphatase was 371. The patient's total bilirubin since admission has alesha to 10.3 on 02/03/2019. The patient's liver functions have shown a gradual decrease from admission with an AST of 187, ALT of 208, and alkaline phosphatase of 334 on 02/03/2019. Again, the bilirubin on 02/03/2019 was 10.3. Chemistry showed normal, albumin was 3.0. Immunology Testing: DB was pending as of this dictation. Antimitochondrial antibody was negative. Liver kidney microsomal antibody was pending. Serology was negative. Hepatitis A, B and C antibody index was negative. Toxicology: Alcohol was negative. Coagulation showed an INR of 1.02. Imaging studies showed a CT of the abdomen and pelvis which impression was no evidence any biliary dilatation or hepatic dysfunction. No explanation for the patient's laboratories. No masses seen. CT of the abdomen did not show any pancreatic mass for metastasis to the liver or masses in the liver. Spleen was found be homogeneous. Liver was readout as normal. Lungs were clear. The patient also had an MRI of the abdomen but not specifically an MRCP which again showed basically some hepatic cysts in the liver, fatty liver. The patient is status post cholecystectomy. There is no dilatation of the intra- or extrahepatic biliary tree. The pancreas was unremarkable and no ductal dilatation. No aneurysms were noted. No adenopathy. The impression on the MRI of the abdomen showed borderline splenomegaly, tiny hepatic cysts, fatty liver. ANALYSIS: Abnormal liver functions of unknown etiology. At the present time, there are some laboratories still pending including the patient's antinuclear antibody (DB). The possibilities of the cause of this is still possibly viral versus autoimmune hepatitis versus medication-induced liver function abnormalities. The plan as of this day was the patient was discharged and was to followup with us in the office. We will obtain laboratories prior to seeing the patient in the office in approximately one week and see whether there is a downward trend.
== END 2019-02-03 13:20 | disposition home or self-care (01) | DRG 443 ==
LOC: M ED 14:40 → M ED INP 14:41 → M MSPAV 02-01 00:09 → OBSVTOIN 02-02 15:27
PROVIDERS: ADMIT Internal Medicine; ATTEND Internal Medicine
DX: R17 Unspecified jaundice (principal); R74.0 Nonspecific elevation of levels of transaminase and lactic acid dehydrogenase [LDH]; E78.5 Hyperlipidemia, unspecified; N48.1 Balanitis; F03.90 Unspecified dementia, unspecified severity, without behavioral disturbance, psychotic disturbance, mood disturbance, and anxiety; Z95.1 Presence of aortocoronary bypass graft; Z79.82 Long term (current) use of aspirin; Z79.899 Other long term (current) drug therapy; Z88.8 Allergy status to other drugs, medicaments and biological substances; Z91.040 Latex allergy status

== ENCOUNTER → 2019-01-31 | Outpatient (REF) | payer MEDICARE ==
[~2019-01-31] MED LIST changes: -ALL10TAB28 PO; +ALL10TAB29 PO; -OMEP40CA2 PO; +OMEP40CA97 PO; -SIMV20TA2 PO; +SIMV20TA22 PO
[2019-01-31 11:23] LABS: BASO % 0.6 % (0.0-1.0); EOS # 0.4 10^3/uL (0.0-0.50); EOS % 7.5 % (0.0-3.0); HEMATOCRIT 44.9 % (42.0-52.0); HEMOGLOBIN 15.2 g/dl (13.5-17.5); LYMPH # 1.4 10^3/uL (1.5-4.5); LYMPH % 25.4 % (24.0-44.0); MEAN CORPUSCULAR HEMOGLOBIN 30.2 pg (27.0-33.0); MEAN CORPUSCULAR HGB CONC 33.9 g/dl (32.0-36.5); MEAN CORPUSCULAR VOLUME 89.1 fl (80.0-96.0); MONO # 0.6 10^3/uL (0.0-0.8); MONO % 11.4 % (0.0-5.0); NEUTROPHILS % 54.9 % (36.0-66.0); RED BLOOD COUNT 5.04 10^6/uL (4.30-6.10); WHITE BLOOD COUNT 5.4 10^3/uL (4.0-10.0)
[2019-01-31 11:24] LABS: PLATELET COUNT, AUTOMATED 93 10^3/uL (150-450)
[2019-01-31 11:32] LABS: INR 1.01
[2019-01-31 11:57] LABS: ALBUMIN 3.7 GM/DL (3.2-5.2); BILIRUBIN,DIRECT 5.9 MG/DL (0.0-0.2); BILIRUBIN,TOTAL 7.6 MG/DL (0.2-1.0); CALCIUM LEVEL 8.6 MG/DL (8.8-10.2); CREATININE FOR GFR 1.28 MG/DL (0.70-1.30); GLOMERULAR FILTRATION RATE 57.3 (>35); TOTAL PROTEIN 6.7 GM/DL (6.4-8.2)
== END ==
LOC: M SFHCLERA 09:57
PROVIDERS: ATTEND Nurse Practitioner Family
DX: R30.0 Dysuria (principal)

== ENCOUNTER → 2019-02-10 | Outpatient (CLI) | payer MEDICARE ==
[~2019-02-10] MED LIST changes: +ALL10TAB28 PO; +CLOTR1CR TOP; +CO Q PO; +DONE10TA90 PO; +FLON1SPR NARES; +MELA5CAP2 PO; +METO1TAB32 PO; +NAME28CA PO; +PANT40TA3 PO; +PLAV1TAB2 PO; +QUET1TAB7 PO; +TRIPOIN5 TOP; +ZINC1TAB2 PO
[2019-02-10 15:17] LABS: BASO % 0.6 % (0.0-1.0); EOS # 0.5 10^3/uL (0.0-0.50); EOS % 9.5 % (0.0-3.0); HEMATOCRIT 40.2 % (42.0-52.0); HEMOGLOBIN 14.2 g/dl (13.5-17.5); LYMPH # 1.4 10^3/uL (1.5-4.5); LYMPH % 26.6 % (24.0-44.0); MEAN CORPUSCULAR HEMOGLOBIN 30.9 pg (27.0-33.0); MEAN CORPUSCULAR HGB CONC 35.3 g/dl (32.0-36.5); MEAN CORPUSCULAR VOLUME 87.6 fl (80.0-96.0); MONO # 0.3 10^3/uL (0.0-0.8); MONO % 6.5 % (0.0-5.0); NEUTROPHILS % 56.2 % (36.0-66.0); PLATELET COUNT, AUTOMATED 129 10^3/uL (150-450); RED BLOOD COUNT 4.59 10^6/uL (4.30-6.10); WHITE BLOOD COUNT 5.3 10^3/uL (4.0-10.0)
[2019-02-10 21:18] LABS: ALBUMIN 3.1 GM/DL (3.2-5.2); ALT/SGPT 211 U/L (12-78); BILIRUBIN,TOTAL 15.8 MG/DL (0.2-1.0); BLOOD UREA NITROGEN 16 MG/DL (7-18); CALCIUM LEVEL 8.8 MG/DL (8.8-10.2); CARBON DIOXIDE LEVEL 25 MEQ/L (21-32); CHLORIDE LEVEL 103 MEQ/L (98-107); CREATININE FOR GFR 1.04 MG/DL (0.70-1.30); GLOMERULAR FILTRATION RATE > 60.0 (>35); GLUCOSE, FASTING 101 MG/DL (70-100); POTASSIUM SERUM 4.2 MEQ/L (3.5-5.1); SODIUM LEVEL 137 MEQ/L (136-145); TOTAL PROTEIN 6.2 GM/DL (6.4-8.2)
[2019-02-10 21:44] LABS: BILIRUBIN,DIRECT 12.7 MG/DL (0.0-0.2)
[2019-02-12 15:57] LABS: ANTINUCLEAR ANTIBODIES DIRECT Negative (Negative)
== END ==
LOC: M LAB 14:30
PROVIDERS: ATTEND Internal Medicine Gastroenterology
DX: R94.5 Abnormal results of liver function studies (principal)

== ENCOUNTER → 2019-02-27 | Outpatient (CLI) | payer MEDICARE ==
[2019-02-27 11:28] LABS: ALBUMIN 3.1 GM/DL (3.2-5.2); ALT/SGPT 97 U/L (12-78); BILIRUBIN,TOTAL 4.7 MG/DL (0.2-1.0); BLOOD UREA NITROGEN 12 MG/DL (7-18); CALCIUM LEVEL 8.9 MG/DL (8.8-10.2); CARBON DIOXIDE LEVEL 27 MEQ/L (21-32); CHLORIDE LEVEL 107 MEQ/L (98-107); CREATININE FOR GFR 1.14 MG/DL (0.70-1.30); GLOMERULAR FILTRATION RATE > 60.0 (>35); GLUCOSE, FASTING 135 MG/DL (70-100); SODIUM LEVEL 142 MEQ/L (136-145); TOTAL PROTEIN 6.2 GM/DL (6.4-8.2)
== END ==
LOC: M LAB 10:00
PROVIDERS: ATTEND Internal Medicine Gastroenterology
DX: K76.89 Other specified diseases of liver (principal)

== ENCOUNTER 2019-04-09 13:57 | Inpatient (IN) | payer MEDICARE ==
[~2019-04-09] VITALS: Ht 172.7 cm; Wt 94.3 kg
[~2019-04-09 13:57] MED LIST changes: -ALL10TAB28 PO; +ALL10TAB29 PO
[2019-04-09] MEDS ORDERED: NS 1,000 ML IV SCH (14:10)
[2019-04-09 15:13] LABS: AMPHETAMINES LEVEL URINE NEGATIVE (NEGATIVE); BARBITURATES URINE NEGATIVE (NEGATIVE); BENZODIAZEPINES URINE NEGATIVE (NEGATIVE); CANNABINOIDS URINE NEGATIVE (NEGATIVE); COCAINE METABOLITE URINE NEGATIVE (NEGATIVE); METHADONE URINE NEGATIVE (NEGATIVE); OPIATES URINE NEGATIVE (NEGATIVE); PHENCYCLIDINE URINE NEGATIVE (NEGATIVE)
[2019-04-09 15:15] LABS: BASO % 0.7 % (0.0-1.0); EOS # 0.2 10^3/uL (0.0-0.5); EOS % 3.7 % (0.0-3.0); HEMATOCRIT 47.5 % (42.0-52.0); LYMPH # 1.6 10^3/uL (1.5-5.0); LYMPH % 36.3 % (24.0-44.0); MEAN CORPUSCULAR HEMOGLOBIN 31.2 pg (27.0-33.0); MEAN CORPUSCULAR HGB CONC 33.7 g/dl (32.0-36.5); MEAN CORPUSCULAR VOLUME 92.6 fl (80.0-96.0); MONO # 0.5 10^3/uL (0.0-0.8); MONO % 10.6 % (0.0-5.0); NEUTROPHILS # 2.1 10^3/uL (1.5-8.5); NEUTROPHILS % 48.7 % (36.0-66.0); RED BLOOD COUNT 5.13 10^6/uL (4.30-6.10); WHITE BLOOD COUNT 4.4 10^3/uL (4.0-10.0)
[2019-04-09 15:25] LABS: INR 1.21
[2019-04-09 15:44] LABS: PLATELET COUNT, AUTOMATED 98 10^3/uL (150-450)
[2019-04-09 16:19] LABS: ACETAMINOPHEN LEVEL < 2.0 UG/ML (10.0-30.0); ALBUMIN 3.7 GM/DL (3.2-5.2); ALT/SGPT 41 U/L (12-78); BILIRUBIN,TOTAL 1.8 MG/DL (0.2-1.0); BLOOD UREA NITROGEN 11 MG/DL (7-18); CALCIUM LEVEL 9.3 MG/DL (8.8-10.2); CARBON DIOXIDE LEVEL 27 MEQ/L (21-32); CHLORIDE LEVEL 108 MEQ/L (98-107); CK-MB VALUE MASS 3.4 NG/ML (<3.6); CPK CREATINE PHOSPHOKINASE 290 U/L (39-308); CREATININE FOR GFR 1.12 MG/DL (0.70-1.30); ETHYL ALCOHOL (ETHANOL) < 0.003 % (0.000-0.010); GLOMERULAR FILTRATION RATE > 60.0 (>35); GLUCOSE, FASTING 103 MG/DL (70-100); MB/CK RELATIVE INDEX 1.17 (< OR =4); POTASSIUM SERUM 4.1 MEQ/L (3.5-5.1); SALICYLATE LEVEL < 1.7 MG/DL (5.0-30.0); SODIUM LEVEL 143 MEQ/L (136-145); TOTAL PROTEIN 6.3 GM/DL (6.4-8.2); TROPONIN I 0.16 NG/ML (< 0.10)
[2019-04-09] MEDS ORDERED: ACETAMINOPHEN TAB 650MG DOSE (2X325MG) PO PRN (17:15)
[2019-04-09] MEDS ORDERED: FLUTICASONE PROP 0.05% NASAL SPRAY 16 GM (FLONASE) NARES PRN (17:30)
[2019-04-09] MEDS ORDERED: PANTOPRAZOLE 40MG TAB (PROTONIX) PO PRN (17:30)
--- NOTE | 2019-04-09 17:44 | HPEPDOC ---
General Date of Admission Apr 09, 2019 at 17:05 Date of Service: Apr 09, 2019 Chief Complaint The patient is a 83-year-old male Who presented to the emergency room after being brought in by police for confusion History of Present Illness Patient is an 83-year-old male with a PMHx of Alzheimers dementia, CAD s/p CABG (2005) s/p stent (2017), HTN, DLP, AUGUSTO on CPAP , who presented to the emergency room brought in by police because he was found wandering around [facility] with a weapon. Police had arrested him and brought him in for further questioning and realized that he was unable to answer basic questions. He was subsequently brought to the hospital for further evaluation. When asking the patient, he is unable to provide any specific answers to the events that have transpired. . Patients is able to provide some details of his prior activities. . She is indicated that over the last several days hes been having a progressive decline in his mentation. Hes been more forgetful at home. Over the last 3 consecutive days he has gotten up and drove off in the evening unsure of where he was going. Patient denies shortness of breath, cough, palpitations, chest pain, nausea, vomiting, abdominal pain, constipation, diarrhea, or urinary discomfort. Patient is unsure if he hes experienced any fevers or chills over the last 2 weeks. As per the , patient has been having a poor appetite and has experienced some weight loss. Home Medications Scheduled Ascorbic Acid (Vitamin C) 500 Mg Tab, 500 MG PO DAILY, (Reported) Aspirin (Aspirin EC) 81 Mg Tab, 81 MG PO QHS, (Reported) Cetirizine HCl (Cetirizine HCl) 10 Mg Tablet, 10 MG PO DAILY, (Reported) Clopidogrel Bisulfate (Plavix) 75 Mg Tablet, 75 MG PO DAILY, (Reported) Donepezil HCl (Donepezil HCl) 10 Mg Tablet, 10 MG PO QHS, (Reported) Melatonin (Melatonin) 5 Mg Capsule, 5 MG PO QHS, (Reported) Memantine HCl (Namenda Xr) 28 Mg Cap.spr.24, 28 MG PO DAILY, (Reported) Metoprolol Succinate (Metoprolol Succinate) 25 Mg Tab.er.24h, 25 MG PO DAILY, (Reported) Multivitamins (Thera M Plus Tablet) 1 Tab Tab, 1 TAB PO DAILY, (Reported) Quetiapine Fumarate (Quetiapine Fumarate) 25 Mg Tablet, 25 MG PO QHS, (Reported) Simvastatin (Simvastatin) 20 Mg Tab, 20 MG PO QHS, (Reported) Ubidecarenone (Co Q-10) 75 Mg Capsule, 75 MG PO DAILY, (Reported) Zinc (Zinc) 50 Mg Tablet, 50 MG PO QHS, (Reported) Scheduled PRN Fluticasone Propionate (Flonase Allergy Relief) 9.9 [place].susp, 2 SPRAY NARES DAILY PRN for CONGESTION, (Reported) Pantoprazole Sodium (Pantoprazole Sodium) 40 Mg Tablet.dr, 40 MG PO DAILY PRN for ACID REFLUX, (Reported) Allergies Coded Allergies: latex (Verified Allergy, Intermediate, rash, 01/31/19) rofecoxib (Verified Allergy, Intermediate, rash, 01/31/19) Past Medical History Medical History Alzheimers dementia, CAD s/p CABG (2005) s/p stent (2016), HTN, DLP, AUGUSTO on CPAP Surgical History Laminectomy at L4-L5 Coronary artery bypass grafting 2005 Cholecystectomy Family History - As per , patient has a family history of Alzheimers Social History - Denies the use of alcohol or illicit drugs; patient has quit smoking nabor roximately 10 years ago - Denies recent travel or sick contacts - Lives with ; patient is a resident of [place]. However, he has a home in [place]. Plans to depart to [place] next week. Review of Systems Other systems 10 point review of systems complete, all negative otherwise stated in HPI Vital Signs - Vitals: BP 136/64, HR 65, RR 20, Sat 97%RA, Temp 97.0F - General: Lying in bed, No acute distress, Speaking in full sentences, AAOx1 (Person only) - HEENT: NC, AT, PERRLA, EOMI - CVS: RRR, +S1S2 - Lungs: Fair air entry bilaterally, No appreciable wheezing / rales / rhonchi - Abdomen: Soft, Non-distended, Non-tender - Extremities: No lower extremity edema, No calf tenderness - Neuro: No focal motor or sensory deficit; there is 5 out of 5 strength in upper and lower extremities bilaterally; cranial nerves II through XII are g rossly intact - Skin: No visible rashes Laboratory Data Labs 24H Laboratory Tests 2 04/09/19 14:24: Urine Color YELLOW, Urine Appearance CLEAR, Urine pH 5.0, Urine Specific [employer] 1.014, Urine Protein NEGATIVE, Urine Glucose (UA) NEGATIVE, Urine Ketones NEGATIVE, Urine Blood NEGATIVE, Urine Nitrite NEGATIVE, Urine Bilirubin NEGATIVE, Urine Urobilinogen 0.2, Urine Leukocyte Esterase NEGATIVE, Urine WBC (Auto) 0, Urine RBC (Auto) 1, Urine Hyaline Casts (Auto) 0, Urine Bacteria (Auto) NEGATIVE, Urine Squamous Epithelial Cells 0, Urine Sperm (Auto) , Urine Amphetamines Screen NEGATIVE, Urine Benzodiazepines Screen NEGATIVE, Urine Opiates Screen NEGATIVE, Urine Methadone Screen NEGATIVE, Urine Barbiturates Screen NEGATIVE, Urine Phencyclidine Screen NEGATIVE, Urine Cocaine Metabolite Screen NEGATIVE, Urine Cannabinoids Screen NEGATIVE 04/09/19 14:57: Immature Granulocyte % (Auto) 0.0, White Blood Count 4.4, Red Blood Count 5.13, Hemoglobin 16.0, Hematocrit 47.5, Mean Corpuscular Volume 92.6, Mean Corpuscular Hemoglobin 31.2, Mean Corpuscular Hemoglobin Concent 33.7, Red Cell Distribution Width 15.0H, Platelet Count 98L, Neutrophils (%) (Auto) 48.7, Lymphocytes (%) (Auto) 36.3, Monocytes (%) (Auto) 10.6H, Eosinophils (%) (Auto) 3.7H, Basophils (%) (Auto) 0.7, Neutrophils # (Auto) 2.1, Lymphocytes # (Auto) 1.6, Monocytes # (Auto) 0.5, Eosinophils # (Auto) 0.2, Basophils # (Auto) 0.0, Nucleated Red Blood Cells % (auto) 0.0, Immature Platelet Fraction 5.5, Prothrombin Time 15.0H, Prothromb Time International Ratio 1.21, Lactic Acid Level 2.7*H, Ammonia 24 04/09/19 15:30: Anion Gap 8, Glomerular Filtration Rate > 60.0, Calcium Level 9.3, Aspartate Amino Transf (AST/SGOT) 59H, Alanine Aminotransferase (ALT/SGPT) 41, Alkaline Phosphatase 151H, Total Bilirubin 1.8H, Direct Bilirubin 1.0H, Total Creatine Kinase 290, Creatine Kinase MB 3.4, Creatine Kinase MB Relative Index 1.17, Troponin I 0.16H, Total Protein 6.3L, Albumin 3.7, Albumin/Globulin Ratio 1.42, Thyroid Stimulating Hormone (TSH) 2.120, Salicylates Level < 1.7L, Acetaminophen Level < 2.0L, Ethyl Alcohol Level < 0.003 CBC/BMP Laboratory Tests 04/09/19 14:57 Red Blood Count 5.13, Mean Corpuscular Volume 92.6, Mean Corpuscular Hemoglobin 31.2, Mean Corpuscular Hemoglobin Concent 33.7, Red Cell Distribution Width 15.0 H, Neutrophils (%) (Auto) 48.7, Lymphocytes (%) (Auto) 36.3, Monocytes (%) (Aut o) 10.6 H, Eosinophils (%) (Auto) 3.7 H, Basophils (%) (Auto) 0.7, Neutrophils # (Auto) 2.1, Lymphocytes # (Auto) 1.6, Monocytes # (Auto) 0.5, Eosinophils # (Auto) 0.2, Basophils # (Auto) 0.0 04/09/19 15:30 Plan / VTE VTE Prophylaxis Ordered?: Yes Plan Plan Confusion - possibly 2/2 worsening of Alzheimers dementia, possibly 2/2 infectious etiology, less likely 2/2 stroke - Patient presented to the ER , brought in by police because of confusion - As per the patients . 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 - Patient is oriented to person only - There is no focal neurologic deficits on physical exam - Lab work does not reveal any significant abnormalities - No signs of infection noted - Will get chest x-ray to complete infectious workup, will check RPR and Lyme titers - Will get MRI brain - c/w Donepezil; will confirm if patient is on Namenda (re: - Will consider neurology evaluation if required Elevated lactic acid - Will start IV fluid hydration Elevated bilirubin / mild elevation of liver enzymes - Patient has had an extensive hospitalization in January for painless jaundice - Is suspected that the patient could be having an autoimmune hepatitis; however, the workup was negative - He was seen and evaluated by gastroenterology and is followed up with them as an outpatient - Will continue to monitor Thrombocytopenia - Review of medical records indicates that this is gone on since January 2018 - No evidence of bleeding - Platelet count has remained stable since that point Elevated troponin - Currently patient has no chest pain, shortness breath or palpitations - EKG performed in the emergency room on 04/09 was consistent with prior EKGs - Patients prior hospitalization have shown that his troponin levels have been mildly elevated at baseline - Will continue to trend CAD s/p CABG (2005) s/p stent (2016) - c/w ASA, Plavix, Simvastatin, Metoprolol HTN - BP moderately elevated - c/w Metoprolol DLP - c/w Simvastatin AUGUSTO on CPAP - May allow home CPAP while inpatient GERD - c/w Protonix DVT prophylaxis - Will start Heparin EVIN MOORE MD Apr 09, 2019 17:44
[2019-04-09 19:22] VITALS: BP 142/66
--- NOTE | 2019-04-09 19:28 | ECGEPIP ---
[facility] - ED Test Date: 2019-04-09 Pat Name: VALDO GLASS Department: Room: Gender: Male [employer]: anisha : 1935 Requested By: FELISHA LAWLER Order Number: [id number] Reading MD: Reema Miller Measurements Intervals [place] Rate: 73 P: 24 ME: 199 QRS: 42 QRSD: 98 T: -10 QT: 399 QTc: 442 Interpretive Statements SINUS RHYTHM NONSPECIFIC T-WAVE ABNORMALITY CW 01/31/[address] T WAVE CHANGES Electronically Signed on 04-09-2019 19:27:58 EDT by Reema Miller
[2019-04-09] MEDS: DONEPEZIL 5 MG TAB PO SCH (20:44)
[2019-04-09] MEDS: SIMVASTATIN 20 MG TAB PO SCH (20:44)
[2019-04-09] MEDS: RAMELTEON 8 MG TAB (ROZEREM) PO SCH (20:44)
[2019-04-09] MEDS: HEPARIN SOD (PORCINE) 5000 UNITS/ML VIAL SC SCH (20:44)
[2019-04-09] MEDS: NS 1,000 ML IV SCH (20:44)
[2019-04-09] MEDS: QUEtiapine FUMARATE 25 MG TAB PO SCH (20:44)
[2019-04-09] MEDS: ASPIRIN 81 MG ENTERIC TAB PO SCH (20:44)
[2019-04-09 21:59] LABS: CK-MB VALUE MASS 3.3 NG/ML (<3.6); MB/CK RELATIVE INDEX 1.1 (< OR =4); TROPONIN I 0.19 NG/ML (< 0.10)
[2019-04-09 22:00] VITALS: BP 141/67
[2019-04-10 04:30] LABS: BASO % 0.5 % (0.0-1.0); EOS # 0.2 10^3/uL (0.0-0.5); EOS % 5.4 % (0.0-3.0); LYMPH # 2.2 10^3/uL (1.5-5.0); LYMPH % 50.3 % (24.0-44.0); MEAN CORPUSCULAR HEMOGLOBIN 31.4 pg (27.0-33.0); MEAN CORPUSCULAR HGB CONC 33.8 g/dl (32.0-36.5); MEAN CORPUSCULAR VOLUME 92.9 fl (80.0-96.0); MONO # 0.5 10^3/uL (0.0-0.8); NEUTROPHILS # 1.4 10^3/uL (1.5-8.5); NEUTROPHILS % 32.6 % (36.0-66.0); WHITE BLOOD COUNT 4.3 10^3/uL (4.0-10.0)
[2019-04-10 04:34] LABS: PLATELET COUNT, AUTOMATED 86 10^3/uL (150-450)
[2019-04-10 04:35] LABS: HEMOGLOBIN 13.2 g/dl (13.5-17.5)
[2019-04-10 04:43] LABS: BLOOD UREA NITROGEN 10 MG/DL (7-18); CALCIUM LEVEL 8.5 MG/DL (8.8-10.2); CARBON DIOXIDE LEVEL 27 MEQ/L (21-32); CHLORIDE LEVEL 110 MEQ/L (98-107); CK-MB VALUE MASS 3.6 NG/ML (<3.6); CPK CREATINE PHOSPHOKINASE 319 U/L (39-308); CREATININE FOR GFR 1.11 MG/DL (0.70-1.30); GLOMERULAR FILTRATION RATE > 60.0 (>35); GLUCOSE, FASTING 92 MG/DL (70-100); MAGNESIUM LEVEL 1.6 MG/DL (1.8-2.4); MB/CK RELATIVE INDEX 1.13 (< OR =4); POTASSIUM SERUM 3.7 MEQ/L (3.5-5.1); SODIUM LEVEL 144 MEQ/L (136-145); TROPONIN I 0.19 NG/ML (< 0.10)
[2019-04-10 06:00] VITALS: BP 118/67
[2019-04-10] MEDS: HEPARIN SOD (PORCINE) 5000 UNITS/ML VIAL SC SCH ×3 (06:02→21:51)
[2019-04-10] MEDS: NS 1,000 ML IV SCH ×2 (06:03→19:00)
--- NOTE | 2019-04-10 07:34 | REP ---
CT BRAIN WITHOUT CONTRAST: 04/09/2019. Clinical history: Altered mental status. Findings: No prior studies. The soft tissue and bone windows are reviewed for each slice level. Lateral ventricles midline, symmetric and dilated but in proportion to the moderately diffuse cerebral atrophy. That atrophy is greatest in the frontal and temporal lobes but is fairly similar throughout. Basal ganglia are also fairly symmetric. There is heterogeneous low attenuation white matter change bilaterally representing chronic small vessel ischemic disease. Cortical stripe shows a symmetric appearance with the atrophy and no evidence for an acute infarct, intracranial hemorrhage, mass or mass effect. No extra-axial hemorrhage or fluid collection. The brainstem intact. Cerebellum shows atrophy. Basal cisterns are intact. Mastoids symmetric. Visualized sinuses are clear. The skull base and calvarium show no fracture or focal lesion. Impression: 1. Moderate atrophy with proportionate ventriculomegaly. 2. Chronic small vessel white matter ischemic changes of aging. 3. No acute infarct, intracranial hemorrhage, mass, extra-axial fluid collection or hemorrhage, skull base or calvarial fracture. No focal bone lesion. 4. Sinuses and mastoids visible were clear. Electronically Signed by Cam Coleman MD 04/10/2019 09:15 A
[2019-04-10] MEDS ORDERED: MAG SULF 1GM/100ML (MAG RUN) 1 GM in IV 1 EA IV ONE (08:00)
--- NOTE | 2019-04-10 08:45 | REP ---
AP PORTABLE CHEST: 04/09/2019. Clinical history: Wheezing. Comparison: 01/18/2019, 05/14/2016. Findings: Sternotomy wires are again seen and unchanged. There is better level of inflation in the left lung with a right diaphragm elevated as on the previous studies. There is no pleural effusion. Some minor linear atelectatic or fibrotic change bilaterally. This is seen in the bases. Heart size unchanged. Aorta is mildly tortuous. Airway is intact. The bony thorax shows no focal lesion but some degenerative changes spine and shoulders noted. Impression: 1. Elevated right diaphragm, prior CABG and some linear fibrotic or atelectatic change in the bases along the diaphragms. Stable. No infiltrate, effusion or edema. Electronically Signed by Cam Coleman MD 04/10/2019 10:42 A
[2019-04-10] MEDS ORDERED: FLUBLOK(EGG FREE)(QUAD)INFLUENZA VACC 0.5ML SYRINGE (90682)18YRS&OLDER IM ONE (09:00)
[2019-04-10] MEDS: CLOPIDOGREL 75 MG TAB PO SCH (09:06)
[2019-04-10] MEDS: CO-ENZYME Q10 50 MG CAP PO SCH (09:07)
[2019-04-10] MEDS: METOPROLOL SUCC *XL* 25MG TAB (TopROL *XL*) PO SCH (09:09)
[2019-04-10] MEDS: MULTIVITAMINS/MINERALS THERAP 1 TAB PO SCH (09:10)
--- NOTE | 2019-04-10 12:02 | IPNPDOC ---
Text Note Date of Service The patient was seen on 04/10/19. NOTE Subjective: Patient is an 83-year-old male with a PMHx of Alzheimers dementia, CAD s/p CABG (2005) s/p stent (2017), HTN, DLP, AUGUSTO on CPAP , who presented to the emergency room brought in by police because he was found wandering around [facility] with a weapon. Police had arrested him and brought him in for further questioning and realized that he was unable to answer basic questions. He was subsequently brought to the hospital for further evaluation. When asking the patient, he is unable to provide any specific answers to the events that have transpired. Patients is able to provide some details of his prior activities. . She is indicated that over the last several days hes been having a progressive decline in his mentation. Hes been more forgetful at home. Over the last 3 consecutive days he has gotten up and drove off in the evening unsure of where he was going. Patient was seen and examined at the bedside. Patient and can remains confused and is only oriented to person. He denies any chest pain, abdominal pain, shortness of breath, nausea, or urinary discomfort. Objective: Vitals (See below) General: Lying in bed, no acute distress, comfortable, AAOx1 (person only) HEENT: NC, AT CVS: +S1S2 Lungs: Fair air entry b/l, -w/r/r Abdomen: Soft, ND, NT Extremities: - Edema, - Calf tenderness Neuro: 5/5 strength at U/LE bilaterally Assessment and plan: Confusion - possibly 2/2 worsening of Alzheimers dementia, possibly 2/2 infectious etiology, less likely 2/2 stroke - Patient presented to the ER by Police for confusion; As per the patients , has been experiencing progressive decline in his mentation - History of Alzheimer's dementia diagnosed possibly 4 years ago - Oriented only to person; No focal deficits on exam - Lab work does not reveal any significant abnormalities - No signs of infection noted; RPR and Lyme titers pending - CXR 04/10: Elevated right diaphragm, prior CABG and some linear fibrotic or atelectatic change in the bases along the diaphragms. Stable. No infiltrate, effusion or edema. - MRI brain pending - c/w Donepezil; - Will consider neurology evaluation if required Elevated lactic acid - c/w IV fluid hydration Elevated bilirubin / mild elevation of liver enzymes - Patient has had an extensive hospitalization in January for painless jaundice - Is suspected that the patient could be having an autoimmune hepatitis; however, the workup was negative - He was seen and evaluated by gastroenterology and is followed up with them as an outpatient - Will continue to monitor Thrombocytopenia - Review of medical records indicates that this is gone on since January 2018 - No evidence of bleeding - Platelet count has remained stable since that point Elevated troponin - Currently patient has no chest pain, shortness breath or palpitations - EKG performed in the emergency room on 04/09 was consistent with prior EKGs - Patients prior hospitalization have shown that his troponin levels have been mildly elevated at baseline - Has remained stable CAD s/p CABG (2005) s/p stent (2016) - c/w ASA, Plavix, Simvastatin, Metoprolol HTN - BP moderately elevated - c/w Metoprolol DLP - c/w Simvastatin AUGUSTO on CPAP - May allow home CPAP while inpatient GERD - c/w Protonix DVT prophylaxis - c/w Heparin Disposition: - Possibly progressive Alzheimer's VS,Betty, I+O VS, Betty, I+O Laboratory Tests 04/09/19 14:57 Red Blood Count 5.13, Mean Corpuscular Volume 92.6, Mean Corpuscular Hemoglobin 31.2, Mean Corpuscular Hemoglobin Concent 33.7, Red Cell Distribution Width 15.0 H, Neutrophils (%) (Auto) 48.7, Lymphocytes (%) (Auto) 36.3, Monocytes (%) ( Auto) 10.6 H, Eosinophils (%) (Auto) 3.7 H, Basophils (%) (Auto) 0.7, Neutrophils # (Auto) 2.1, Lymphocytes # (Auto) 1.6, Monocytes # (Auto) 0.5, Eosinophils # (Auto) 0.2, Basophils # (Auto) 0.0 04/09/19 15:30 04/10/19 04:01 Red Blood Count 4.20 L, Mean Corpuscular Volume 92.9, Mean Corpuscular Hemoglobin 31.4, Mean Corpuscular Hemoglobin Concent 33.8, Red Cell Distribution Width 14.8 H, Neutrophils (%) (Auto) 32.6 L, Lymphocytes (%) (Auto) 50.3 H, Monocytes (%) (Auto) 11.0 H, Eosinophils (%) (Auto) 5.4 H, Basophils (%) (Auto) 0.5, Neutrophils # (Auto) 1.4 L, Lymphocytes # (Auto) 2.2, Monocytes # (Auto) 0.5, Eosinophils # (Auto) 0.2, Basophils # (Auto) 0.0, Calcium Level 8.5 L, Total Creatine Kinase 319 H Vital Signs Date Time Temp Pulse Resp B/P (MAP) Pulse Ox O2 Delivery O2 Flow Rate FiO2 04/10/19 09:09 63 132/67 04/10/19 06:00 98.4 18 97 04/09/19 18:36 Room Air I&O- Last 24 Hours up to 6 AM 04/10/19 06:00 Intake Total 720 ml Output Total 150 ml Balance 570 ml EVIN MOORE MD Apr 10, 2019 12:02
--- NOTE | 2019-04-10 12:20 | ECGEPIP ---
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
[2019-04-10 14:23] VITALS: BP 133/66
[2019-04-10] MEDS: QUEtiapine FUMARATE 25 MG TAB PO SCH (21:51)
[2019-04-10] MEDS: ASPIRIN 81 MG ENTERIC TAB PO SCH (21:51)
[2019-04-10] MEDS: RAMELTEON 8 MG TAB (ROZEREM) PO SCH (21:51)
[2019-04-10] MEDS: DONEPEZIL 5 MG TAB PO SCH (21:51)
[2019-04-10] MEDS: SIMVASTATIN 20 MG TAB PO SCH (21:51)
[2019-04-10 22:00] VITALS: BP 133/66
[2019-04-11] MEDS: HEPARIN SOD (PORCINE) 5000 UNITS/ML VIAL SC SCH ×3 (05:44→21:39)
[2019-04-11 06:00] VITALS: BP 158/83
[2019-04-11 06:04] VITALS: BP 158/83
--- NOTE | 2019-04-11 07:23 | REP ---
MRI BRAIN WITHOUT CONTRAST: 04/10/2019. Clinical history: Confusion, altered mental status. Comparison: CT 04/09/2019. Technique: Sagittal T1 FLAIR with axial T1, T2, FLAIR, gradient-echo, diffusion-weighted images and ADC mapping sequence. Findings. There is ventriculomegaly of the lateral ventricles symmetric, but dilated and in proportion to the diffuse cerebral atrophy. This is age appropriate. Third and fourth ventricles are also proportionate and somewhat dilated. There is periventricular, deep central and subcortical white matter hyperintense T2 and FLAIR signal change representing chronic small vessel white matter ischemic disease. This is compatible with a finding on CT. Basal ganglia appear symmetric. Long-white junction differentiation is maintained. Although there is diffuse moderately severe atrophy. It is greatest in the temporal and frontal lobes but present throughout. There is no definite evidence for intracranial hemorrhage, mass, mass effect or extra-axial fluid collection. Diffusion weighted images and the ADC mapping sequences show no evidence of restricted water diffusion or acute ischemia. Corpus callosum is thinned but intact. The optic chiasm and pituitary also grossly intact. There is ample subarachnoid space about the craniocervical junction with no cerebellar tonsillar ectopia. Ectasia of the distal end, into the distal internal carotids and into the carotid siphons in a symmetric fashion. The seventh/eighth cranial nerve complexes are symmetric and normal. The brainstem was intact. Tortuosity of the basilar artery and appearance is normal. Brainstem and cerebellum without focal lesion. Basal cisterns intact. Visualized sinuses show minor ethmoid sinus mucosal thickening were otherwise clear. Orbits and contents symmetric and normal. Impression: 1. Chronic small vessel white matter ischemic changes. 2. Moderate atrophy and proportionate ventriculomegaly. 3. No acute infarct, intracranial hemorrhage, mass, mass effect or extra-axial fluid collection. 4. Diffusion-weighted images show no restricted water diffusion or acute ischemia. Electronically Signed by Cam Coleman MD 04/11/2019 08:31 A
--- NOTE | 2019-04-11 07:26 | REP ---
MRA BRAIN WITHOUT CONTRAST: 04/10/2019. Comparison: MRI brain today, CT brain 04/09/2019. Clinical history: Altered mental status. Confusion. Technique: 3-D [id number] gradient echo images with MIP reformatting and rotational display of the volume reconstructions about the longitudinal and horizontal axis of the brain. All source images are reviewed. The tortuosity of the vertebral arteries in their distal course was symmetric contribution of the basilar artery. The basilar is also tortuous and the basilar tip shows no aneurysm, giving rise to symmetric posterior cerebral arteries without stenosis or aneurysm. The right internal carotid from the skull base to the carotid siphon shows some mild ectasia but no aneurysm or stenosis. The intracavernous and supraclinoid portions show no stenosis. The A1, M1 segments and anterior and middle cerebral artery branches were unremarkable. No stenosis or aneurysm. The left internal carotid from the skull base to the carotid siphon also shows no significant stenosis or aneurysm and is slightly ectatic. There is no intracavernous aneurysm or stenosis. The supraclinoid, A1 and M1 segments on the left were unremarkable. The visible branches of the anterior and middle cerebral arteries on the left are unremarkable. The source images confirm these findings. Impression: 1. There is no evidence of any significant stenosis or aneurysm in the intracranial vasculature. Electronically Signed by Cam Coleman MD 04/11/2019 08:31 A
[2019-04-11] MEDS: CLOPIDOGREL 75 MG TAB PO SCH (08:45)
[2019-04-11] MEDS: CO-ENZYME Q10 50 MG CAP PO SCH (08:45)
[2019-04-11] MEDS: MULTIVITAMINS/MINERALS THERAP 1 TAB PO SCH (08:45)
[2019-04-11] MEDS: METOPROLOL SUCC *XL* 25MG TAB (TopROL *XL*) PO SCH (08:46)
[2019-04-11 10:17] LABS: BASO % 0.5 % (0.0-1.0); EOS # 0.3 10^3/uL (0.0-0.5); EOS % 7.1 % (0.0-3.0); HEMATOCRIT 41.8 % (42.0-52.0); HEMOGLOBIN 14.2 g/dl (13.5-17.5); LYMPH # 1.4 10^3/uL (1.5-5.0); LYMPH % 35.7 % (24.0-44.0); MEAN CORPUSCULAR HEMOGLOBIN 31.6 pg (27.0-33.0); MEAN CORPUSCULAR VOLUME 92.9 fl (80.0-96.0); MONO # 0.4 10^3/uL (0.0-0.8); MONO % 9.8 % (0.0-5.0); NEUTROPHILS # 1.8 10^3/uL (1.5-8.5); NEUTROPHILS % 46.9 % (36.0-66.0); WHITE BLOOD COUNT 3.8 10^3/uL (4.0-10.0)
[2019-04-11 10:20] LABS: PLATELET COUNT, AUTOMATED 90 10^3/uL (150-450)
[2019-04-11 10:38] LABS: BLOOD UREA NITROGEN 11 MG/DL (7-18); CALCIUM LEVEL 8.9 MG/DL (8.8-10.2); CARBON DIOXIDE LEVEL 26 MEQ/L (21-32); CHLORIDE LEVEL 108 MEQ/L (98-107); CREATININE FOR GFR 1.12 MG/DL (0.70-1.30); GLOMERULAR FILTRATION RATE > 60.0 (>35); GLUCOSE, FASTING 157 MG/DL (70-100); MAGNESIUM LEVEL 1.9 MG/DL (1.8-2.4); POTASSIUM SERUM 3.7 MEQ/L (3.5-5.1); SODIUM LEVEL 143 MEQ/L (136-145)
--- NOTE | 2019-04-11 12:16 | IPNPDOC ---
Text Note Date of Service The patient was seen on 04/11/19. NOTE Subjective: Patient is an 83-year-old male with a PMHx of Alzheimers dementia, CAD s/p CABG (2005) s/p stent (2017), HTN, DLP, AUGUSTO on CPAP , who presented to the emergency room brought in by police because he was found wandering around [facility] with a weapon. Police had arrested him and brought him in for further questioning and realized that he was unable to answer basic questions. He was subsequently brought to the hospital for further evaluation. When asking the patient, he is unable to provide any specific answers to the events that have transpired. Patients is able to provide some details of his prior activities. . She is indicated that over the last several days hes been having a progressive decline in his mentation. Hes been more forgetful at home. Over the last 3 consecutive days he has gotten up and drove off in the evening unsure of where he was going. Patient was seen and examined at the bedside. Patient is only oriented to person. He is not oriented to time or place. He denies any problems currently. No chest pain, shortness of breath or palpitations. No abdominal pain or diarrhea. Patient has cleared physical therapy and occupation therapy. Discuss with who has indicated that they have a plan to take patient back to [place]. Objective: Vitals (See below) General: Lying in bed, no acute distress, comfortable, AAOx1 (person only) HEENT: NC, AT CVS: +S1S2 Lungs: Air entry is fair bilaterally, without any auscultated rhonchi, wheezing or rales Abdomen: Soft, non-distended / non-tender Extremities: - Edema, - Calf tenderness Neuro: 5/5 strength at U/LE bilaterally Assessment and plan: Confusion - possibly 2/2 worsening of Alzheimers dementia, possibly 2/2 infectious etiology, less likely 2/2 stroke - Patient presented to the ER by Police for confusion; As per the patients , has been experiencing progressive decline in his mentation - History of Alzheimer's dementia diagnosed possibly 4 years ago - Remains only oriented to person, still thinks that he's in [place] and has no recollection of current year - Lab work does not reveal any significant abnormalities - No signs of infection noted; RPR negative; Lyme titers pending - CXR 04/10: Elevated right diaphragm, prior CABG and some linear fibrotic or atelectatic change in the bases along the diaphragms. Stable. No infiltrate, effusion or edema. - MRI brain 04/10: 1. Chronic small vessel white matter ischemic changes. 2. Moderate atrophy and proportionate ventriculomegaly. 3. No acute infarct, intracranial hemorrhage, mass, mass effect or extra-axial fluid collection. 4. Diffusion-weighted images show no restricted water diffusion or acute ischemia. - MRA brain 04/10: 1. There is no evidence of any significant stenosis or aneurysm in the intracranial vasculature. - c/w Donepezil - Patient has cleared PT / OT; will discuss with case management / social workers about discharge plan home Elevated lactic acid - c/w IV fluid hydration Elevated bilirubin / mild elevation of liver enzymes - Patient has had an extensive hospitalization in January for painless jaundice - Is suspected that the patient could be having an autoimmune hepatitis; however, the workup was negative - He was seen and evaluated by gastroenterology and is followed up with them as an outpatient Thrombocytopenia - Review of medical records indicates that this is gone on since January 2018 - No evidence of bleeding - Platelet count remains stable Elevated troponin - Currently patient has no chest pain, shortness breath or palpitations - EKG performed in the emergency room on 04/09 was consistent with prior EKGs - Patients prior hospitalization have shown that his troponin levels have been mildly elevated at baseline - Has remained stable CAD s/p CABG (2005) s/p stent (2016) - c/w ASA, Plavix, Simvastatin, Metoprolol HTN - BP moderately elevated - c/w Metoprolol DLP - c/w Simvastatin AUGUSTO on CPAP - May allow home CPAP while inpatient GERD - c/w Protonix DVT prophylaxis - c/w Heparin Disposition: - Possible discharge within 24 hours VS,Betty, I+O VS, Betty, I+O Laboratory Tests 04/11/19 09:52 Red Blood Count 4.50, Mean Corpuscular Volume 92.9, Mean Corpuscular Hemoglobin 31.6, Mean Corpuscular Hemoglobin Concent 34.0, Red Cell Distribution Width 14.6 H, Neutrophils (%) (Auto) 46.9, Lymphocytes (%) (Auto) 35.7, Monocytes (%) (Auto) 9.8 H, Eosinophils (%) (Auto) 7.1 H, Basophils (%) (Auto) 0.5, Neutrophils # (Auto) 1.8, Lymphocytes # (Auto) 1.4 L, Monocytes # (Auto) 0.4, Eosinophils # (Auto) 0.3, Basophils # (Auto) 0.0, Calcium Level 8.9 Vital Signs Date Time Temp Pulse Resp B/P (MAP) Pulse Ox O2 Delivery O2 Flow Rate FiO2 04/11/19 08:46 67 158/83 04/11/19 06:00 97.8 17 97 04/09/19 18:36 Room Air I&O- Last 24 Hours up to 6 AM 04/11/19 05:59 Intake Total 1380 ml Output Total 400 ml Balance 980 ml EVIN MOORE MD Apr 11, 2019 12:16
[2019-04-11 13:55] VITALS: BP 116/65
[2019-04-11 21:34] VITALS: BP 117/64
[2019-04-11] MEDS: QUEtiapine FUMARATE 25 MG TAB PO SCH (21:39)
[2019-04-11] MEDS: RAMELTEON 8 MG TAB (ROZEREM) PO SCH (21:39)
[2019-04-11] MEDS: ASPIRIN 81 MG ENTERIC TAB PO SCH (21:39)
[2019-04-11] MEDS: DONEPEZIL 5 MG TAB PO SCH (21:40)
[2019-04-11] MEDS: SIMVASTATIN 20 MG TAB PO SCH (21:40)
[2019-04-12] MEDS: HEPARIN SOD (PORCINE) 5000 UNITS/ML VIAL SC SCH ×3 (05:58→21:21)
[2019-04-12 06:04] VITALS: BP 118/63
[2019-04-12 07:03] LABS: BASO % 0.8 % (0.0-1.0); EOS # 0.3 10^3/uL (0.0-0.5); EOS % 7.9 % (0.0-3.0); HEMATOCRIT 38.8 % (42.0-52.0); HEMOGLOBIN 13.1 g/dl (13.5-17.5); LYMPH # 1.7 10^3/uL (1.5-5.0); LYMPH % 44.4 % (24.0-44.0); MEAN CORPUSCULAR HGB CONC 33.8 g/dl (32.0-36.5); MEAN CORPUSCULAR VOLUME 91.9 fl (80.0-96.0); MONO # 0.5 10^3/uL (0.0-0.8); MONO % 11.5 % (0.0-5.0); NEUTROPHILS # 1.4 10^3/uL (1.5-8.5); NEUTROPHILS % 35.1 % (36.0-66.0); RED BLOOD COUNT 4.22 10^6/uL (4.30-6.10); WHITE BLOOD COUNT 3.9 10^3/uL (4.0-10.0)
[2019-04-12 07:21] LABS: PLATELET COUNT, AUTOMATED 94 10^3/uL (150-450)
[2019-04-12 07:28] LABS: BLOOD UREA NITROGEN 15 MG/DL (7-18); CALCIUM LEVEL 8.7 MG/DL (8.8-10.2); CARBON DIOXIDE LEVEL 26 MEQ/L (21-32); CHLORIDE LEVEL 111 MEQ/L (98-107); CREATININE FOR GFR 1.11 MG/DL (0.70-1.30); GLOMERULAR FILTRATION RATE > 60.0 (>35); GLUCOSE, FASTING 95 MG/DL (70-100); MAGNESIUM LEVEL 1.9 MG/DL (1.8-2.4); POTASSIUM SERUM 3.8 MEQ/L (3.5-5.1); SODIUM LEVEL 144 MEQ/L (136-145)
[2019-04-12] MEDS: CLOPIDOGREL 75 MG TAB PO SCH (09:54)
[2019-04-12] MEDS: CO-ENZYME Q10 50 MG CAP PO SCH (09:54)
[2019-04-12] MEDS: MULTIVITAMINS/MINERALS THERAP 1 TAB PO SCH (09:54)
[2019-04-12] MEDS: METOPROLOL SUCC *XL* 25MG TAB (TopROL *XL*) PO SCH (09:55)
--- NOTE | 2019-04-12 12:35 | IPNPDOC ---
Text Note Date of Service The patient was seen on 04/12/19. NOTE Subjective: Patient is an 83-year-old male with a PMHx of Alzheimers dementia, CAD s/p CABG (2005) s/p stent (2017), HTN, DLP, AUGUSTO on CPAP , who presented to the emergency room brought in by police because he was found wandering around [facility] with a weapon. Police had arrested him and brought him in for further questioning and realized that he was unable to answer basic questions. He was subsequently brought to the hospital for further evaluation. When asking the patient, he is unable to provide any specific answers to the events that have transpired. Patients is able to provide some details of his prior activities. . She is indicated that over the last several days hes been having a progressive decline in his mentation. Hes been more forgetful at home. Over the last 3 consecutive days he has gotten up and drove off in the evening unsure of where he was going. Patient was seen and examined at the bedside. Denies any problems overnight. Reports that he slept well. Still is only oriented to person. Denies any CP, SOB, palpitations, abdominal pain, discomfort with urination or diarrhea. Objective: Vitals (See below) General: Lying in bed, no acute distress, comfortable, AAOx1 (person only) HEENT: NC, AT CVS: +S1S2 Lungs: Fair b/l, no rhonchi / crackles / wheezing Abdomen: Remains soft, obese, ND, without tenderness Extremities: no evidence of LE edema, - Calf tenderness Assessment and plan: Confusion - likely 2/2 worsening of Alzheimers dementia, possibly 2/2 infectious etiology (Lyme serology pending) - Patient presented to the ER by Police for confusion; As per the patients , has been experiencing progressive decline in his mentation - History of Alzheimer's dementia diagnosed possibly 4 years ago - Only oriented to person - Lab work does not reveal any significant abnormalities - No signs of infection noted; RPR negative; Lyme titers pending - CXR 04/10: Elevated right diaphragm, prior CABG and some linear fibrotic or atelectatic change in the bases along the diaphragms. Stable. No infiltrate, effusion or edema. - MRI brain 04/10: 1. Chronic small vessel white matter ischemic changes. 2. Moderate atrophy and proportionate ventriculomegaly. 3. No acute infarct, intracranial hemorrhage, mass, mass effect or extra-axial fluid collection. 4. Diffusion-weighted images show no restricted water diffusion or acute ischemia. - MRA brain 04/10: 1. There is no evidence of any significant stenosis or aneurysm in the intracranial vasculature. - c/w Donepezil - Patient has cleared PT / OT; will discuss with case management / dialysis social worker s about discharge plan home - Will plan to transition the patient home with supervision once medically cleared Elevated lactic acid - c/w IV fluid hydration Elevated bilirubin / mild elevation of liver enzymes - Patient has had an extensive hospitalization in January for painless jaundice - Was suspected that the patient could be having an autoimmune hepatitis; however, the workup was negative - He was seen and evaluated by gastroenterology and is followed up with them as an outpatient Thrombocytopenia - Review of medical records indicates that this is gone on since January 2018 - No evidence of bleeding - Platelet count remains stable Elevated troponin - Currently patient has no chest pain, shortness breath or palpitations - EKG performed in the emergency room on 04/09 was consistent with prior EKGs - Patients prior hospitalization have shown that his troponin levels have been mildly elevated at baseline - Has remained stable CAD s/p CABG (2005) s/p stent (2016) - c/w ASA, Plavix, Simvastatin, Metoprolol HTN - BP moderately elevated - c/w Metoprolol DLP - c/w Simvastatin AUGUSTO on CPAP - May allow home CPAP while inpatient GERD - c/w Protonix DVT prophylaxis - c/w Heparin Disposition: - Anticipate discharge soon VS,Betty, I+O VS, Betty, I+O Laboratory Tests 04/12/19 06:38 Red Blood Count 4.22 L, Mean Corpuscular Volume 91.9, Mean Corpuscular Hemoglobin 31.0, Mean Corpuscular Hemoglobin Concent 33.8, Red Cell Distribution Width 14.6 H, Neutrophils (%) (Auto) 35.1 L, Lymphocytes (%) (Auto) 44.4 H, Monocytes (%) (Auto) 11.5 H, Eosinophils (%) (Auto) 7.9 H, Basophils (%) (Auto) 0.8, Neutrophils # (Auto) 1.4 L, Lymphocytes # (Auto) 1.7, Monocytes # (Auto) 0.5, Eosinophils # (Auto) 0.3, Basophils # (Auto) 0.0, Calcium Level 8.7 L Vital Signs Date Time Temp Pulse Resp B/P (MAP) Pulse Ox O2 Delivery O2 Flow Rate FiO2 04/12/19 09:55 64 122/66 04/12/19 06:04 97.8 18 94 04/09/19 18:36 Room Air I&O- Last 24 Hours up to 6 AM 04/12/19 06:00 Intake Total 600 ml Balance 600 ml EVIN MOORE MD Apr 12, 2019 12:35
[2019-04-12 13:45] VITALS: BP 121/62
[2019-04-12] MEDS: RAMELTEON 8 MG TAB (ROZEREM) PO SCH (21:22)
[2019-04-12] MEDS: ASPIRIN 81 MG ENTERIC TAB PO SCH (21:23)
[2019-04-12] MEDS: QUEtiapine FUMARATE 25 MG TAB PO SCH (21:23)
[2019-04-12] MEDS: SIMVASTATIN 20 MG TAB PO SCH (21:23)
[2019-04-12] MEDS: DONEPEZIL 5 MG TAB PO SCH (21:23)
[2019-04-12 22:00] VITALS: BP 145/69
[2019-04-13 00:07] LABS: Lyme Disease IgG/IgM Antibodie <0.91 ISR (0.00-0.90); Lyme Disease IgM Ab Quantitati <0.80 index (0.00-0.79)
[2019-04-13] MEDS: HEPARIN SOD (PORCINE) 5000 UNITS/ML VIAL SC SCH ×2 (05:32→14:00)
[2019-04-13 06:00] VITALS: BP 110/60
[2019-04-13 06:34] LABS: BASO % 0.7 % (0.0-1.0); EOS # 0.4 10^3/uL (0.0-0.5); EOS % 8.9 % (0.0-3.0); HEMATOCRIT 40.7 % (42.0-52.0); HEMOGLOBIN 13.9 g/dl (13.5-17.5); LYMPH # 1.9 10^3/uL (1.5-5.0); MEAN CORPUSCULAR HEMOGLOBIN 31.8 pg (27.0-33.0); MEAN CORPUSCULAR HGB CONC 34.2 g/dl (32.0-36.5); MEAN CORPUSCULAR VOLUME 93.1 fl (80.0-96.0); MONO # 0.5 10^3/uL (0.0-0.8); MONO % 11.4 % (0.0-5.0); NEUTROPHILS # 1.3 10^3/uL (1.5-8.5); NEUTROPHILS % 32.8 % (36.0-66.0); RED BLOOD COUNT 4.37 10^6/uL (4.30-6.10)
[2019-04-13 06:35] LABS: PLATELET COUNT, AUTOMATED 91 10^3/uL (150-450)
[2019-04-13 07:01] LABS: BLOOD UREA NITROGEN 15 MG/DL (7-18); CALCIUM LEVEL 8.7 MG/DL (8.8-10.2); CARBON DIOXIDE LEVEL 27 MEQ/L (21-32); CHLORIDE LEVEL 110 MEQ/L (98-107); CREATININE FOR GFR 1.04 MG/DL (0.70-1.30); GLOMERULAR FILTRATION RATE > 60.0 (>35); GLUCOSE, FASTING 85 MG/DL (70-100); MAGNESIUM LEVEL 1.9 MG/DL (1.8-2.4); SODIUM LEVEL 143 MEQ/L (136-145)
[2019-04-13 08:42] VITALS: BP 115/64
[2019-04-13] MEDS: CO-ENZYME Q10 50 MG CAP PO SCH (08:42)
[2019-04-13] MEDS: CLOPIDOGREL 75 MG TAB PO SCH (08:42)
[2019-04-13] MEDS: METOPROLOL SUCC *XL* 25MG TAB (TopROL *XL*) PO SCH (08:42)
[2019-04-13] MEDS: MULTIVITAMINS/MINERALS THERAP 1 TAB PO SCH (08:42)
--- NOTE | 2019-04-13 10:59 | IPNPDOC ---
Text Note Date of Service The patient was seen on 04/13/19. NOTE Subjective: Patient is an 83-year-old male with a PMHx of Alzheimers dementia, CAD s/p CABG (2005) s/p stent (2017), HTN, DLP, AUGUSTO on CPAP , who presented to the emergency room brought in by police because he was found wandering around [facility] with a weapon. Police had arrested him and brought him in for further questioning and realized that he was unable to answer basic questions. He was subsequently brought to the hospital for further evaluation. When asking the patient, he is unable to provide any specific answers to the events that have transpired. Patients is able to provide some details of his prior activities. . She is indicated that over the last several days hes been having a progressive decline in his mentation. Hes been more forgetful at home. Over the last 3 consecutive days he has gotten up and drove off in the evening unsure of where he was going. Patient was seen and examined at the bedside. Still remains oriented only to person. Denies any CP, SOB or palpitations. Has not experienced N/V, abdominal pain, diarrhea or urinary discomfort Objective: Vitals (See below) General: Lying in bed, no acute distress, comfortable, AAOx1 (person only) HEENT: NC, AT CVS: +S1S2 Lungs: Fair b/l, -r/r/w Abdomen: Obese, Soft, without distention/tenderness Extremities: LE are without edema, - Calf tenderness Assessment and plan: Confusion - likely 2/2 worsening of Alzheimers dementia, possibly 2/2 infectious etiology (Lyme serology pending) - Patient presented to the ER by Police for confusion; As per the patients , has been experiencing progressive decline in his mentation - History of Alzheimer's dementia diagnosed approximately 4 years ago - Oriented to person only - Lab work does not reveal any significant abnormalities - No signs of infection noted; RPR negative; Lyme titers negative - CXR 04/10: Elevated right diaphragm, prior CABG and some linear fibrotic or atelectatic change in the bases along the diaphragms. Stable. No infiltrate, effusion or edema. - MRI brain 04/10: 1. Chronic small vessel white matter ischemic changes. 2. Moderate atrophy and proportionate ventriculomegaly. 3. No acute infarct, intracranial hemorrhage, mass, mass effect or extra-axial fluid collection. 4. Diffusion-weighted images show no restricted water diffusion or acute ischemia. - MRA brain 04/10: 1. There is no evidence of any significant stenosis or aneurysm in the intracranial vasculature. - c/w Donepezil - Patient has cleared PT / OT; will discuss with case management / social workers about discharge plan home - Will plan to transition the patient home with supervision once medically cleared s/p Elevated lactic acid - c/w IV fluid hydration Elevated bilirubin / mild elevation of liver enzymes - Patient has had an extensive hospitalization in January for painless jaundice - Was suspected that the patient could be having an autoimmune hepatitis; however, the workup was negative - He was seen and evaluated by gastroenterology and is followed up with them as an outpatient Thrombocytopenia - Review of medical records indicates that this is gone on since January 2018 - No evidence of bleeding - Platelet count remains stable Elevated troponin - Currently patient has no chest pain, shortness breath or palpitations - EKG performed in the emergency room on 04/09 was consistent with prior EKGs - Patients prior hospitalization have shown that his troponin levels have been mildly elevated at baseline - Has remained stable CAD s/p CABG (2005) s/p stent (2016) - c/w ASA, Plavix, Simvastatin, Metoprolol HTN - BP moderately elevated - c/w Metoprolol DLP - c/w Simvastatin AUGUSTO on CPAP - May allow home CPAP while inpatient GERD - c/w Protonix DVT prophylaxis - c/w Heparin Disposition: - Anticipate discharge within 24 hours VS,Betty, I+O VS, Betty, I+O Laboratory Tests 04/13/19 05:55 Red Blood Count 4.37, Mean Corpuscular Volume 93.1, Mean Corpuscular Hemoglobin 31.8, Mean Corpuscular Hemoglobin Concent 34.2, Red Cell Distribution Width 14.6 H, Neutrophils (%) (Auto) 32.8 L, Lymphocytes (%) (Auto) 46.0 H, Monocytes (%) (Auto) 11.4 H, Eosinophils (%) (Auto) 8.9 H, Basophils (%) (Auto) 0.7, Neutrophils # (Auto) 1.3 L, Lymphocytes # (Auto) 1.9, Monocytes # (Auto) 0.5, Eosinophils # (Auto) 0.4, Basophils # (Auto) 0.0, Calcium Level 8.7 L Vital Signs Date Time Temp Pulse Resp B/P (MAP) Pulse Ox O2 Delivery O2 Flow Rate FiO2 04/13/19 08:42 60 115/64 04/13/19 06:00 97.6 18 96 04/09/19 18:36 Room Air I&O- Last 24 Hours up to 6 AM 04/13/19 06:00 Intake Total 900 ml Balance 900 ml EVIN MOORE MD Apr 13, 2019 10:59
[2019-04-13] MEDS ORDERED: QUET1TAB7 PO ×2 (12:33)
--- NOTE | 2019-04-13 12:49 | DS.PDOC ---
Discharge Summary General Date of Admission Apr 09, 2019 at 17:05 Date of Discharge 04/13/2019 Discharge Summary PROCEDURES PERFORMED DURING STAY: [None]. ADMITTING DIAGNOSES / DISCHARGE DIAGNOSES: Confusion - likely 2/2 worsening of Alzheimers dementia, possibly 2/2 infectious etiology (Lyme serology pending) s/p Elevated lactic acid Elevated bilirubin / mild elevation of liver enzymes Thrombocytopenia Elevated troponin CAD s/p CABG (2005) s/p stent (2016) HTN DLP AUGUSTO on CPAP GERD DVT prophylaxis COMPLICATIONS/CHIEF COMPLAINT: Confusion. HISTORY OF PRESENT ILLNESS: Patient is an 83-year-old male with a PMHx of Alzheimers dementia, CAD s/p CABG (2005) s/p stent (2016), HTN, DLP, AUGUSTO on CPAP , who presented to the emergency room brought in by police because he was found wandering around [facility] with a weapon. Police had arrested him and brought him in for further questioning and realized that he was unable to answer basic questions. He was subsequently brought to the hospital for further evaluation. When asking the patient, he is unable to provide any specific answers to the events that have transpired. Patients is able to provide some details of his prior activities. . She is indicated that over the last several days hes been having a progressive decline in his mentation. Hes been more forgetful at home. Over the last 3 consecutive days he has gotten up and drove off in the evening unsure of where he was going. HOSPITAL COURSE: Confusion - likely 2/2 worsening of Alzheimers dementia, possibly 2/2 infectious etiology (Lyme serology pending) - Patient presented to the ER by Police for confusion; As per the patients , has been experiencing progressive decline in his mentation - History of Alzheimer's dementia diagnosed approximately 4 years ago - Oriented to person only - Lab work does not reveal any significant abnormalities - No signs of infection noted; RPR negative; Lyme titers negative - CXR 04/10: Elevated right diaphragm, prior CABG and some linear fibrotic or atelectatic change in the bases along the diaphragms. Stable. No infiltrate, effusion or edema. - MRI brain 04/10: 1. Chronic small vessel white matter ischemic changes. 2. Moderate atrophy and proportionate ventriculomegaly. 3. No acute infarct, intracranial hemorrhage, mass, mass effect or extra-axial fluid collection. 4. Diffusion-weighted images show no restricted water diffusion or acute ischemia. - MRA brain 04/10: 1. There is no evidence of any significant stenosis or aneurysm in the intracranial vasculature. - c/w Donepezil - Patient has cleared PT / OT - Discussed with case management / social work; patient will be taken to alf care facility in [place] with transport provided by Family; they will provide supervision during the transport s/p Elevated lactic acid - c/w IV fluid hydration Elevated bilirubin / mild elevation of liver enzymes - Patient has had an extensive hospitalization in January for painless jaundice - Was suspected that the patient could be having an autoimmune hepatitis; however, the workup was negative - He was seen and evaluated by gastroenterology and is followed up with them as an outpatient Thrombocytopenia - Review of medical records indicates that this is gone on since January 2018 - No evidence of bleeding - Platelet count remains stable Elevated troponin - Currently patient has no chest pain, shortness breath or palpitations - EKG performed in the emergency room on 04/09 was consistent with prior EKGs - Patients prior hospitalization have shown that his troponin levels have been mildly elevated at baseline - Has remained stable CAD s/p CABG (2005) s/p stent (2016) - c/w ASA, Plavix, Simvastatin, Metoprolol HTN - BP moderately elevated - c/w Metoprolol DLP - c/w Simvastatin AUGUSTO on CPAP - May allow home CPAP while inpatient GERD - c/w Protonix DVT prophylaxis - c/w Heparin DISCHARGE MEDICATIONS: Please see below. ALLERGIES: Please see below. PHYSICAL EXAMINATION ON DISCHARGE: Vitals (See below) General: Lying in bed, no acute distress, comfortable, AAOx1 (person only) HEENT: NC, AT CVS: +S1S2 Lungs: Fair b/l, -r/r/w Abdomen: Obese, Soft, without distention/tenderness Extremities: LE are without edema, - Calf tenderness LABORATORY DATA: Please see below. ACTIVITY: [As tolerated]. DISCHARGE PLAN: Follow up with Dr. Luis Grewal / PCP within 7 days Follow up with Neurology within 1 week for further workup Remain compliant with treatment plan and medications Return to the ER if you experience any problems DISPOSITION: [facility] [place] Transport / Supervision provided by Family ( and Daughter / Son-in-law) DISCHARGE CONDITION: [Stable]. TIME SPENT ON DISCHARGE: 35 minutes Vital Signs/I&Os Vital Signs Date Time Temp Pulse Resp B/P (MAP) Pulse Ox O2 Delivery O2 Flow Rate FiO2 04/13/19 08:42 60 115/64 04/13/19 06:00 97.6 18 96 04/09/19 18:36 Room Air I&O- Last 24 Hours up to 6 AM 04/13/19 05:59 Intake Total 900 ml Balance 900 ml Laboratory Data Labs 24H Laboratory Tests 2 04/13/19 05:55: Immature Granulocyte % (Auto) 0.2, White Blood Count 4.0, Red Blood Count 4.37, Hemoglobin 13.9, Hematocrit 40.7L, Mean Corpuscular Volume 93.1, Mean Corpuscular Hemoglobin 31.8, Mean Corpuscular Hemoglobin Concent 34.2, Red Cell Distribution Width 14.6H, Platelet Count 91L, Neutrophils (%) (Auto) 32.8L, Lymphocytes (%) (Auto) 46.0H, Monocytes (%) (Auto) 11.4H, Eosinophils (%) (Auto) 8.9H, Basophils (%) (Auto) 0.7, Neutrophils # (Auto) 1.3L, Lymphocytes # (Auto) 1.9, Monocytes # (Auto) 0.5, Eosinophils # (Auto) 0.4, Basophils # (Auto) 0.0, Nucleated Red Blood Cells % (auto) 0.0, Immature Platelet Fraction 4.9, Anion Gap 6L, Glomerular Filtration Rate > 60.0, Blood Urea Nitrogen 15, Creatinine 1.04, Sodium Level 143, Potassium Level 4.0, Chloride Level 110H, Carbon Dioxide Level 27, Calcium Level 8.7L, Magnesium Level 1.9 CBC/BMP Laboratory Tests 04/13/19 05:55 Red Blood Count 4.37, Mean Corpuscular Volume 93.1, Mean Corpuscular Hemoglobin 31.8, Mean Corpuscular Hemoglobin Concent 34.2, Red Cell Distribution Width 14.6 H, Neutrophils (%) (Auto) 32.8 L, Lymphocytes (%) (Auto) 46.0 H, Monocytes (%) (Auto) 11.4 H, Eosinophils (%) (Auto) 8.9 H, Basophils (%) (Auto) 0.7, Neutrophils # (Auto) 1.3 L, Lymphocytes # (Auto) 1.9, Monocytes # (Auto) 0.5, Eosinophils # (Auto) 0.4, Basophils # (Auto) 0.0, Calcium Level 8.7 L Discharge Medications Scheduled Ascorbic Acid (Vitamin C) 500 Mg Tab, 500 MG PO DAILY, (Reported) Aspirin (Aspirin EC) 81 Mg Tab, 81 MG PO QHS, (Reported) Cetirizine HCl (Cetirizine HCl) 10 Mg Tablet, 10 MG PO DAILY, (Reported) Clopidogrel Bisulfate (Plavix) 75 Mg Tablet, 75 MG PO DAILY, (Reported) Donepezil HCl (Donepezil HCl) 10 Mg Tablet, 10 MG PO QHS, (Reported) Melatonin (Melatonin) 5 Mg Capsule, 5 MG PO QHS, (Reported) Metoprolol Succinate (Metoprolol Succinate) 25 Mg Tab.er.24h, 25 MG PO DAILY, (Reported) Multivitamins (Thera M Plus Tablet) 1 Tab Tab, 1 TAB PO DAILY, (Reported) Quetiapine Fumarate (Quetiapine Fumarate) 25 Mg Tablet, 50 MG PO QHS Quetiapine Fumarate (Quetiapine Fumarate) 25 Mg Tablet, 25 MG PO QPM for next 4 days only Simvastatin (Simvastatin) 20 Mg Tab, 20 MG PO QHS, (Reported) Ubidecarenone (Co Q-10) 75 Mg Capsule, 75 MG PO DAILY, (Reported) Zinc (Zinc) 50 Mg Tablet, 50 MG PO QHS, (Reported) Scheduled PRN Fluticasone Propionate (Flonase Allergy Relief) 9.9 Ml [place].susp, 2 SPRAY NARES DAILY PRN for CONGESTION, (Reported) Pantoprazole Sodium (Pantoprazole Sodium) 40 Mg Tablet.dr, 40 MG PO DAILY PRN for ACID REFLUX, (Reported) Allergies Coded Allergies: latex (Verified Allergy, Intermediate, rash, 01/31/19) rofecoxib (Verified Allergy, Intermediate, rash, 01/31/19) EVIN MOORE MD Apr 13, 2019 12:49
== END 2019-04-13 14:15 | disposition home or self-care (01) | DRG 57 ==
LOC: M ED 13:57 → M ED INP 17:05 → M MS5PR 18:35
PROVIDERS: ADMIT Internal Medicine; ATTEND Internal Medicine
DX: G30.9 Alzheimer's disease, unspecified (principal); E87.2 Acidosis; R17 Unspecified jaundice; F02.80 Dementia in other diseases classified elsewhere, unspecified severity, without behavioral disturbance, psychotic disturbance, mood disturbance, and anxiety; I25.10 Atherosclerotic heart disease of native coronary artery without angina pectoris; D69.6 Thrombocytopenia, unspecified; K21.9 Gastro-esophageal reflux disease without esophagitis; I10 Essential (primary) hypertension; E78.5 Hyperlipidemia, unspecified; G47.33 Obstructive sleep apnea (adult) (pediatric); Z95.5 Presence of coronary angioplasty implant and graft; Z79.82 Long term (current) use of aspirin; Z79.899 Other long term (current) drug therapy; Z91.040 Latex allergy status; Z88.8 Allergy status to other drugs, medicaments and biological substances; Z87.891 Personal history of nicotine dependence